=== PATIENT | male | born 1945 | race Caucasian/White ===

== ENCOUNTER 2019-04-15 16:24 | Inpatient (IN) | payer OTHER, SELFPAY ==
[2019-04-15] VITALS (10 sets, daily range): BP systolic 148–189; BP diastolic 74–103; PULSE 92–127; RESP 16–33; TEMP 36.9–40.8; O2SAT 94–96; BMI 25.0; BMI 25.1
--- NOTE | 2019-04-15 17:00 | RAD_ITS ---
STUDY: X-RAY CHEST REASON FOR EXAM: Male, 74 years old. FEVER 104 AT HOME, N/V/D, WEAKNESS TECHNIQUE: Single frontal view of the chest. COMPARISON: None. FINDINGS: Focal right medial basilar pneumonia cannot be excluded. Consider correlation with PA and lateral views of clinically indicated. Left basilar atelectasis. There is no demonstrated pleural abnormality. Normal size heart. Normal mediastinum and anastasiia. Normal visualized pulmonary arteries. Normal visualized aortic arch and descending thoracic aorta. Normal visualized thoracic spine. There is degenerative osteoarthritis of the bilateral shoulders. There is no demonstrated abnormality of the visualized soft tissue structures of the upper abdomen. RAD/Chest 1 View (Portable) IMPRESSION: Focal right medial basilar pneumonia cannot be excluded. Consider correlation with PA and lateral views of clinically indicated. Left basilar atelectasis. Electronically Signed: Solitario Rodriguez MD at 17:27 EST Tel , Service support ,
--- NOTE | 2019-04-15 17:12 | ED.VISSUMM ---
- ER Visit Summary Date of Service: 04/15/19 Chief Complaint: Fever History of Present Illness: The patient is a 74 M presenting with fever. Patient states this started on Monday. He has not felt well for the past 2 days. He had one episode of vomiting, one episode of diarrhea today. Denies blood in his stool or emesis. He complains of mild diffuse abdominal pain. He did not receive a flu shot this year. His last Tylenol was 7 AM. He went to urgent care and was sent to the ED for further evaluation. He denies chest pain or shortness of breath. He complains of myalgias. Denies headache. Physical Examination: Vitals are stable. Temperature 101.1. Heart rate 127. Alert no acute distress. HEENT exam is unremarkable. Neck is supple. No meningismus Lungs are clear and equal bilaterally. Heart is regular and tachycardic Abdomen is soft mild left lower quadrant and right lower quadrant tenderness with no guarding or rebound Extremities are unremarkable. Skin is warm and dry. No rash No focal neurologic deficit. Remainder of exam is unremarkable. Emergency Department Course and Treatment: Patient was given IV fluids, Tylenol. Chest xray shows focal right medial basilar pneumonia cannot be excluded. Consider correlation with PA and lateral views of clinically indicated. Left basilar atelectasis. Lateral view confirms alveolar disease in the posterior right lung base, likely related to pneumonia. CT abd pelvis shows right lower lobe pneumonia. No evidence of appendicitis, acute intestinal pathology, or acute obstructive uropathy. CBC unremarkable. Chemistries show sodium 127, glucose 121, BUN 19. Liver enzymes show ALT 70, AST 58, lipase 145. Urinalysis unremarkable. Lactic acid is normal. Blood cultures were sent. He was given Rocephin and Zithromax IV. Discussed with the hospitalist for admission. Disposition: Admission Impression: Community acquired pneumonia This note was generated with [employer] Capt[employer] dictation software. It may contain incorrect words, spelling, and punctuation that were not noted in review of the chart prior to signing ED Disposition - Plan for ED Patient: Referrals: Michael Hyman DO [Primary Care Provider] -
[2019-04-15] MEDS: 0.9% Normal Saline 1,000 ML 1000 ML IV (17:32)
[2019-04-15] MEDS: Acetaminophen 500 MG Tablet 1000 MG PO (17:32)
[2019-04-15 17:43] LABS: Absolute Lymphocyte Count 0.81 X10^3/uL (0.83-4.51); Basophil# 0.02 X10^3/uL; Basophil% 0.2 % (0-1); Differential Indicated SCAN CRITERIA MET; Hematocrit 41.2 % (40-54); Hemoglobin 14.4 g/dL (13.0-16.5); Lymphocyte # 0.81 X10^3/ul (4.0); Lymphocyte % 9.7 % (19-41); Mean Corpuscular Hgb 29.7 pg (27.0-32.0); Mean Corpuscular Volume 84.9 fL (80-94); Mean Platelet Vol. 9.2 fl (6.2-12.0); Monocyte# 0.48 X10^3/uL; Monocyte% 5.8 % (0-10); NRBC Flagged by Analyzer 0 % (0-5); Neutrophil # 6.98 X10^3/uL (2.7-7.7); Neutrophil % 83.7 % (47-70); POSITIVE MORPHOLOGY YES; Platelet Count 154 K/mm3 (150-450); RBC Distribution Width CV 12.3 % (11.6-14.6); RBC Distribution Width SD 37.6 fl (35.1-43.9); Red Blood Count 4.85 M/mm3 (4.6-6.2); White Blood Count 8.3 K/mm3 (4.4-11.0)
[2019-04-15 17:53] LABS: Red Blood Cells-Urine 0 SEEN /hpf (0-5); Squamous Epithelial Cells - UA 0 SEEN /hpf (0-5); White Blood Cells 0 SEEN /hpf (0-5)
[2019-04-15 17:56] LABS: ALB/GLOB Ratio 0.7 RATIO (0.9-2.4); AST(SGOT) 58 U/L (15-37); Alanine Aminotransfer ALT/SGPT 70 U/L (16-61); Albumin, Serum 3.3 g/dL (3.2-5.0); Alkaline Phosphatase 90 U/L (45-117); Anion Gap 7 (5-15); BUN 19 mg/dL (7-18); BUN/Creat Ratio 15.8 RATIO (10-20); Calcium,Total 9.3 mg/dL (8.5-10.1); Chloride 93 mmol/L (98-107); EST Glomerular Filtration Rate 63 mL/min (>60); Est Glom Filt Rate - Afr Amer 76 mL/min (>60); Estimated Creatinine Clearance 51.46 ml/min; Glucose 121 mg/dL (74-106); Lipase 145 U/L (73-393); Potassium 4.3 mmol/L (3.5-5.1); Protein, Total 8.3 g/dL (6.4-8.2); Sodium Level 127 mmol/L (136-145)
[2019-04-15 17:58] LABS: Differential Comment SCANNED
[2019-04-15 18:02] LABS: Color, Urine Yellow (Yellow); Glucose, Dipstick Normal (Normal); Ketone-Dipstick 15 mg/dl (Negative); Leukocyte Esterase-Dipstick Negative /ul (Negative); Nitrite-Dipstick Negative (Negative); Occult Blood-Urine 50 /ul (Negative); Protein-Dipstick 100 mg/dl (Negative); Specific Gravity, Urine 1.025 (1.002-1.030); Urine Bilirubin Dipstick Negative (Negative); Urine Clarity Cloudy (Clear); Urine Urobilinogen Normal (Normal)
[2019-04-15 18:13] LABS: Lactic Acid 0.9 mmol/L (0.4-1.9)
--- NOTE | 2019-04-15 18:37 | RAD_ITS ---
STUDY: X-RAY CHEST REASON FOR EXAM: Male, 74 years old. FEVER OF 104, COUGH -- LATERAL VIEW ONLY- PT HAD AP DONE EARLIER TODAY TECHNIQUE: Lateral view COMPARISON: None. FINDINGS: Lateral view confirms alveolar disease in the posterior right lung base, likely related to pneumonia. Degenerative thoracic spine changes. RAD/Chest 1 View IMPRESSION: Lateral view confirms alveolar disease in the posterior right lung base, likely related to pneumonia. Electronically Signed: Solitario Rodriguez MD at 19:12 EST Tel , Service support ,
--- NOTE | 2019-04-15 18:40 | CT_ITS ---
STUDY: CT ABDOMEN AND PELVIS WITH CONTRAST REASON FOR EXAM: Male, 74 years old. N/V/D/WEAKNESS. FEVER 104 @ HOME. RADIATION DOSAGE (If Supplied By Facility): CTDIvol = ( 11.02 ) mGy, DLP = ( 814.79 ) mGycm TECHNIQUE: Transaxial images were obtained from the dome of the diaphragm to the symphysis pubis with oral contrast. IV 100mL Isovue-300 was administered. Sagittal and coronal images were reconstructed. Individualized dose optimization techniques were used for this CT. COMPARISON: None. FINDINGS: Right lower lobe pneumonia. The visualized portions of the heart are within normal limits. Normal liver. Normal gallbladder and extrahepatic biliary system. Normal spleen. Normal pancreas. Normal bilateral adrenal glands. Normal right kidney. Normal left kidney. Normal visualized stomach. Normal small intestine. Normal colon. The appendix is visualized and appears normal. Normal abdominal aorta. Normal inferior vena cava. Normal retroperitoneum. Normal urinary bladder. Normal abdominal wall. There are diffuse degenerative changes of the visualized lumbar spine. CT/Abdomen/Pelvis WITH Contrast IMPRESSION: Right lower lobe pneumonia. No evidence of appendicitis, acute intestinal pathology, or acute obstructive uropathy. Electronically Signed: Solitario Rodriguez MD at 19:22 EST Tel , Service support ,
[2019-04-15 18:47] LABS: Bacteria RARE /hpf (None Seen)
[2019-04-15 18:48] LABS: Mucous, Urine RARE /hpf (<or=2+)
--- NOTE | 2019-04-15 19:46 | HP.PCM_ITS ---
Problem List (1) Sepsis Status: Acute (2) Community acquired pneumonia Status: Acute History of Present Illness Date of Admission: 04/15/19 Chief Complaint: fever The patient is a 74 year old M, previously healthy, presenting because of fever. At home his temperature was about 104 Fahrenheit. Associated with his symptoms is nausea; vomiting and diarrhea. Originally the stool was loose but now his stool is getting more formed. Further, he had chills and rigors. He denies any shortness of breath; coughing or sore throat. At the emergency department patient was found to have a T-max of 105.5F. He had tachycardia and tachypnea. CT and chest x-ray showed findings consistent with right lower lobe pneumonia. Past Medical History Medical History: Medical History (Last Updated 04/15/19 @ 20:13 by Alireza Khan MD) No previous significant medical history Allergies No Known Allergies Allergy (Verified 04/15/19 16:27) Home Medications: Ambulatory Orders Medication Instructions Recorded NK 04/15/19 Surgical History: - - Left leg surgery with hardware in place Lives: With Family Smoking Status: Never smoker Alcohol: None - *Family History Maternal History Items: Heart Disease - His mother from a heart attack. Paternal History Items: - - He denied any paternal medical history. Review of Systems Constitutional: Reports: Chills, Fever. Denies: Weight Change HEENT: Denies: Head Aches, Sinus Congestion, Sinus Drainage Cardiovascular: Denies: Chest Pain, Palpitations Respiratory: Denies: Cough, Shortness of breath at rest, Sputum production Gastrointestinal: Reports: Diarrhea, Nausea, Vomiting. Denies: Abdominal Pain Genitourinary: Denies: Dysuria Musculoskeletal: Denies: Joint Pain, Joint Tenderness Skin: Denies: Rash, Wounds Neurological: Denies: Numbness, Tingling, Focal weakness Psychiatric: Denies: Anxiety, Depression, Homicidal Ideations, Suicidal Ideations Hematologic/ Lymphatic: Denies: Easy Bruising, Easy Bleeding VTE Information - Inpt Only VTE Present on Admission: No VTE Mechan Device Prophylaxis: None VTE Pharm Prophylaxis ordered?: Yes Patient Problems: Active and Suspected Problems (Last Updated 04/15/19 @ 20:13 by Alireza Khan MD) Sepsis (Acute) Community acquired pneumonia (Acute) - Physical Exam Vitals/I&O's: Vital Signs Temp Pulse Resp BP Pulse Ox 99.6 F H 96 21 H 148/81 H 94 04/15/19 18:32 04/15/19 18:32 04/15/19 18:32 04/15/19 18:32 04/15/19 18:32 Oxygen Delivery Method Room Air Weight: 74.843 kg Body Mass Index (BMI) 25.0 Intake and Output for Last 24 Hours 04/13/19 04/14/19 04/15/19 23:59 23:59 23:59 Intake Total 1000 / 1000 Balance 1000 / 1000 General: Alert, Oriented x3, Cooperative HEENT: Atraumatic, PERRLA, EOMI, Normocephalic Neck: Supple, No JVD, Negative Carotid Bruits Lungs: Clear to auscultation, Normal air movement, Tachypneic Cardiovascular: No murmurs, Tachycardic Abdomen: Bowel Sounds Present, Soft, Non Tender Extremities: No edema, Capillary Refill Less than 3 Seconds Skin: No rashes, No breakdown Musculoskeletal: No Tenderness to Palpation of Joints or Extremities Neurological: Cranial nerves II-XII grossly intact Psych/Mental Status: Normal Affect, Appropriate Microbiology Past 72 Hours 04/15/19 18:15 Mucosa - Nose Influenza Types A,B Direct FA (TERRENCE) - Final Laboratory Results 04/15/19 17:24: WBC 8.3, RBC 4.85, Hgb 14.4, Hct 41.2, MCV 84.9, MCH 29.7, MCHC 35.0, RDW Std Deviation 37.6, RDW Coeff of [place] 12.3, Plt Count 154, MPV 9.2, Immature Gran % (Auto) 0.600, Neut % (Auto) 83.7 H, Lymph % (Auto) 9.7 L, [place] % (Auto) 5.8, Eos % (Auto) 0.0, Baso % (Auto) 0.2, Absolute Neuts (auto) 7.0, Absolute Lymphs (auto) 0.81 L, Nucleated RBC % 0, Differential Comment SCANNED 04/15/19 17:24: Sodium 127 L, Potassium 4.3, Chloride 93 L, Carbon Dioxide 27.0, Anion Gap 7, BUN 19 H, Creatinine 1.20, Estim Creat Clear Calc 51.46, Est GFR (MDRD) Af Amer 76, Est GFR (MDRD) Non-Af 63, BUN/Creatinine Ratio 15.8, Glucose 121 H, Calcium 9.3, Total Bilirubin 0.90, AST 58 H, ALT 70 H, Alkaline Phosphatase 90, Total Protein 8.3 H, Albumin 3.3, Globulin 5.0 H, Albumin/Globulin Ratio 0.7 L, Lipase 145 04/15/19 17:24: Lactic Acid 0.9 04/15/19 17:45: Urine Color Yellow, Urine Clarity Cloudy, Urine pH 6.0, Ur Specific [place] 1.025, Urine Protein 100 H, Urine Glucose (UA) Normal, Urine Ketones 15 H, Urine Occult Blood 50 H, Urine Nitrite Negative, Urine Bilirubin Negative, Urine Urobilinogen Normal, Ur Leukocyte Esterase Negative, Urine RBC 0 SEEN, Urine WBC 0 SEEN, Ur Squamous Epith Cells 0 SEEN, Urine Bacteria RARE, Urine Mucus RARE Assessment/Plan All Active Problems (Last Updated 04/15/19 @ 20:13 by Alireza Khan MD) Sepsis (Acute) Community acquired pneumonia (Acute) The patient is a 74 year old M, previously healthy, presenting because of fever; nausea; vomiting and diarrhea and found to have tachycardia; tachypnea; and high-grade fever; and with radiographic evidence of right lower lobe pneumonia consistent with sepsis secondary to community-acquired pneumonia. Sepsis second community-acquired pneumonia Lactic acid: 0.9 RR ~maximum of 33 at the emergency department. Tachycardia: Maximum of 127 at the emergency department. Place on MedSurg with telemetry Discussed emergency department doctor to start blood cultures x2 and start patient on antibiotics. Ceftriaxone and azithromycin ordered emergency department. Ceftriaxone and azithromycin continued Chest x-ray and abdominal and pelvis CT: Remarkable for right lower lobe pneumonia. Patient is not coughing as such sputum culture not ordered. IV hydration: Received normal saline 1 L bolus at the emergency department. Gentle IV hydration ordered. Legionella antigen screen and Strep antigen ordered Tylenol PRN for fever; Zofran as needed for nausea or vomiting Trend CBC and BMP. Hyponatremia Sodium on presentation was 127 likely due to pneumonia. Treatment of pneumonia as above. Trend BMP. Proteinuria Likely secondary to febrile illness. Also noted to have positive urine occult blood. On discharge recommend patient to have follow-up urinalysis. Elevated liver enzymes Noted to have elevated AST and ALT. Trend liver enzymes. Will get PT/INR. Get acute hepatitis panel. Review of community EMR did not show previous lab results DVT prophylaxis Subcutaneous Lovenox Code Visit Inpatient E&M: 68153 Init Hosp L3
[2019-04-15] MEDS: Ceftriaxone 1 GM/50 ML BAG IV (20:21)
[2019-04-15] MEDS: 0.9% Normal Saline 1,000 ML 75 ML IV (21:06)
[2019-04-16] VITALS (17 sets, daily range): BP systolic 114–145; BP diastolic 54–77; PULSE 87–141; RESP 16–28; TEMP 36.6–38.8; O2SAT 92–96
[2019-04-16] MEDS: Ondansetron 4 MG/2 ML Vial IV (01:57)
[2019-04-16 05:50] LABS: Absolute Lymphocyte Count 1.07 X10^3/uL (0.83-4.51); Absolute Neutrophil Count 5.4 X10^3/uL (2.0-7.7); Basophil# 0.02 X10^3/uL; Basophil% 0.3 % (0-1); Hematocrit 34.4 % (40-54); Lymphocyte # 1.07 X10^3/ul (4.0); Lymphocyte % 15.2 % (19-41); Mean Corp Hgb Conc 34.9 g/dL (32-36); Mean Corpuscular Hgb 29.2 pg (27.0-32.0); Mean Corpuscular Volume 83.7 fL (80-94); Mean Platelet Vol. 8.7 fl (6.2-12.0); Monocyte# 0.53 X10^3/uL; Monocyte% 7.5 % (0-10); NRBC Flagged by Analyzer 0 % (0-5); Neutrophil # 5.38 X10^3/uL (2.7-7.7); Neutrophil % 76.6 % (47-70); Platelet Count 158 K/mm3 (150-450); RBC Distribution Width CV 12.6 % (11.6-14.6); RBC Distribution Width SD 38.2 fl (35.1-43.9); Red Blood Count 4.11 M/mm3 (4.6-6.2)
[2019-04-16 05:56] LABS: International Normalized Ratio 1.1; Prothrombin Time (Protime)PT. 14.4 SECONDS (11.7-14.9)
[2019-04-16 06:23] LABS: AST(SGOT) 50 U/L (15-37); Alanine Aminotransfer ALT/SGPT 62 U/L (16-61); Albumin, Serum 2.6 g/dL (3.2-5.0); Alkaline Phosphatase 82 U/L (45-117); Anion Gap 6 (5-15); BUN 16 mg/dL (7-18); BUN/Creat Ratio 15.2 RATIO (10-20); Bilirubin, Direct 0.19 mg/dL (0.00-0.30); Calcium,Total 8.1 mg/dL (8.5-10.1); Chloride 98 mmol/L (98-107); Creatinine, Serum 1.05 mg/dL (0.70-1.30); EST Glomerular Filtration Rate 73 mL/min (>60); Est Glom Filt Rate - Afr Amer 89 mL/min (>60); Estimated Creatinine Clearance 58.81 ml/min; Globulin 4.3 g/dL (2.2-4.2); Glucose 109 mg/dL (74-106); Potassium 3.6 mmol/L (3.5-5.1); Protein, Total 6.9 g/dL (6.4-8.2); Sodium Level 130 mmol/L (136-145)
--- NOTE | 2019-04-16 09:17 | EKG12_ITS ---
Test Reason : TACHYARDIA Blood Pressure : / mmHG Vent. Rate : 115 BPM Atrial Rate : 131 BPM P-R Int : 000 ms QRS Dur : 084 ms QT Int : 298 ms P-R-T Axes : 000 007 -18 degrees QTc Int : 412 ms Atrial fibrillation Abnormal ECG No previous ECGs available Confirmed by TERRANCE RUIZ ([id number]), editor greeting card PATRIC GARCÍA ([id number]) on 04/19/2019 10:00:52 AM Referred By: LEX Confirmed By:TERRANCE RUIZ
[2019-04-16] MEDS: Acetaminophen 325 MG Tablet 650 MG PO (09:18)
[2019-04-16] MEDS: Ceftriaxone 1 GM/50 ML BAG IV ×2 (09:20→21:09)
[2019-04-16] MEDS: Enoxaparin 40 MG/0.4 ML Syringe SC (09:22)
--- NOTE | 2019-04-16 12:37 | CASEMGMT ---
RN CM Assessment Introduced role of RN CM to patient and patient Dtr Ada at bedside, patient agreeable to RNCM assessment at this time.? Patient is alert, oriented and able?to participate in RN CM Assessment. ?Care providers, pharmacy, and demographics verified. Presentation: Fever, N/V/D Admit Dx: Sepsis s/t PNA Re-Admit: No Barriers/Issues: Patient states does not have electricity at home if Home O2 needed at time of DC, Per Dtr ADA they have access to a generator if needed. PCP: Michael Hyman Specialists: None Preferred Pharmacy: [facility] Insurance: [employer] Benefit:?None ?LNOK: Son Germán Goldman LW/HPOA: None, patient declines completion on this admission but agreeable to receiving information- provided advanced directive information with SW Rack card, made aware can return as an outpatient to complete with SW Dept if chooses at a later time. Living Arrangements:? Lives with his 2 Dtrs in a 2SH, Bedroom on 2nd fl. 3 steps to enter home through the back, 7-8 steps to enter home at another entrance ADL?s: Independent with ambulation and ADLs Transportation: Hired drivers DME: BP machine/pulse ox HHC: None SNF: None Goal: Home and does not think will have any needs. Denies any issues, concerns, needs, or questions with DC planning at this time. Aware CM remains available for any emerging needs. DC PLAN: Home with no anticipated needs identified at this time. RNCM to f/u on O2 status prior to DC for potential Home O2 need. LANCE Giraldo
--- NOTE | 2019-04-16 12:48 | PCM.PN.HOSP ---
Patient Problems: Active and Suspected Problems (Last Updated 04/15/19 @ 20:13 by Alireza Khan MD) Sepsis (Acute) Community acquired pneumonia (Acute) Reason for Visit: pneumonia Subjective: Still with fever. Overall feeling better. Vitals/I&O's: Vital Signs Temp Pulse Resp BP Pulse Ox 37.2 C 94 20 H 119/73 93 04/16/19 09:45 04/16/19 10:46 04/16/19 09:45 04/16/19 09:45 04/16/19 09:45 Oxygen Delivery Method Room Air Weight: 74.5 kg Body Mass Index (BMI) 25.0 Intake and Output for Last 24 Hours 04/14/19 04/15/19 04/16/19 23:59 23:59 23:59 Intake Total 1306.25 / 1306.25 1591.25 / 1591.25 Output Total 450 / 450 425 / 425 Balance 856.25 / 856.25 1166.25 / 1166.25 General: Alert, No apparent distress HEENT: Atraumatic, Normocephalic Oral: Moist Mucosa, No Gingival or Mucosal Lesions/ Ulcerations Neck: No Nodes, Trachea Midline Lungs: Clear to auscultation, Normal air movement, No rhonchi, No wheeze, - - diminished in bases Cardiovascular: Regular rate, Regular Rhythm, Normal S1, Normal S2, No murmurs Abdomen: Bowel Sounds Present, Soft, Non Tender, Non-Distended, No Hepato-splenomegaly Extremities: No edema, No Calf Tenderness Psych/Mental Status: Normal Affect, Appropriate Microbiology Past 72 Hours 04/15/19 17:45 Urine, Clean Catch Legionella Antigen - Final 04/15/19 17:45 Urine, Clean Catch Streptococcus pneumoniae Antigen (M - Final 04/15/19 18:15 Mucosa - Nose Influenza Types A,B Direct FA (TERRENCE) - Final Laboratory Results 04/15/19 17:24: WBC 8.3, RBC 4.85, Hgb 14.4, Hct 41.2, MCV 84.9, MCH 29.7, MCHC 35.0, RDW Std Deviation 37.6, RDW Coeff of [place] 12.3, Plt Count 154, MPV 9.2, Immature Gran % (Auto) 0.600, Neut % (Auto) 83.7 H, Lymph % (Auto) 9.7 L, [place] % (Auto) 5.8, Eos % (Auto) 0.0, Baso % (Auto) 0.2, Absolute Neuts (auto) 7.0, Absolute Lymphs (auto) 0.81 L, Nucleated RBC % 0, Differential Comment SCANNED 04/15/19 17:24: Sodium 127 L, Potassium 4.3, Chloride 93 L, Carbon Dioxide 27.0, Anion Gap 7, BUN 19 H, Creatinine 1.20, Estim Creat Clear Calc 51.46, Est GFR (MDRD) Af Amer 76, Est GFR (MDRD) Non-Af 63, BUN/Creatinine Ratio 15.8, Glucose 121 H, Calcium 9.3, Total Bilirubin 0.90, AST 58 H, ALT 70 H, Alkaline Phosphatase 90, Total Protein 8.3 H, Albumin 3.3, Globulin 5.0 H, Albumin/Globulin Ratio 0.7 L, Lipase 145 04/15/19 17:24: Lactic Acid 0.9 04/15/19 17:45: Urine Color Yellow, Urine Clarity Cloudy, Urine pH 6.0, Ur Specific [place] 1.025, Urine Protein 100 H, Urine Glucose (UA) Normal, Urine Ketones 15 H, Urine Occult Blood 50 H, Urine Nitrite Negative, Urine Bilirubin Negative, Urine Urobilinogen Normal, Ur Leukocyte Esterase Negative, Urine RBC 0 SEEN, Urine WBC 0 SEEN, Ur Squamous Epith Cells 0 SEEN, Urine Bacteria RARE, Urine Mucus RARE 04/16/19 05:35: WBC 7.0, RBC 4.11 L, Hgb 12.0 L, Hct 34.4 L, MCV 83.7, MCH 29.2, MCHC 34.9, RDW Std Deviation 38.2, RDW Coeff of [place] 12.6, Plt Count 158, MPV 8.7, Immature Gran % (Auto) 0.400, Neut % (Auto) 76.6 H, Lymph % (Auto) 15.2 L, [place] % (Auto) 7.5, Eos % (Auto) 0.0, Baso % (Auto) 0.3, Absolute Neuts (auto) 5.4, Absolute Lymphs (auto) 1.07, Nucleated RBC % 0 04/16/19 05:35: PT 14.4, INR 1.1 04/16/19 05:35: Sodium 130 L, Potassium 3.6, Chloride 98, Carbon Dioxide 26.0, Anion Gap 6, BUN 16, Creatinine 1.05, Estim Creat Clear Calc 58.81, Est GFR (MDRD) Af Amer 89, Est GFR (MDRD) Non-Af 73, BUN/Creatinine Ratio 15.2, Glucose 109 H, Calcium 8.1 L, Total Bilirubin 0.60, Direct Bilirubin 0.19, AST 50 H, ALT 62 H, Alkaline Phosphatase 82, Total Protein 6.9, Albumin 2.6 L, Globulin 4.3 H Current Medications Acetaminophen (Tylenol) 650 mg PO Q6H PRN PRN PRN Reason: Pain Score 1-10/Temp > 100.7 F Last Admin: 04/16/19 09:18 Dose: 650 mg Documented by: Enoxaparin Sodium (Lovenox) 40 mg SC DAILY [facility] Last Admin: 04/16/19 09:22 Dose: 40 mg Documented by: Glucagon () 1 mg IM .X1 PRN PRN Reason: Hypoglycemia Ceftriaxone Sodium (Rocephin) 1 gm in 50 mls @ 100 mls/hr IV Q12 [facility] Last Infusion: 04/16/19 09:50 Dose: Infused Documented by: Azithromycin 500 mg/ Dextrose 255 mls @ 250 mls/hr IV Q24 [facility] Last Infusion: 04/16/19 11:29 Dose: Infused Documented by: Dextrose (Dextrose 10%-Water) 250 mls @ 999 mls/hr IV .Q16M PRN; Protocol PRN Reason: HYPOGLYCEMIA Ondansetron HCl (Zofran) 4 mg IV Q8H PRN PRN PRN Reason: NAUSEA/VOMITING Last Admin: 04/16/19 01:57 Dose: 4 mg Documented by: Sodium Chloride () 10 - 40 ml IV UD PRN PRN Reason: SALINE FLUSH STROKE Vital Signs/Narrative: Vital Signs Temp Pulse Resp BP Pulse Ox 04/16/19 10:46 94 04/16/19 09:45 37.2 C 107 H 20 H 119/73 93 04/16/19 09:05 38.8 C H 124 H 28 H 127/74 H 93 04/16/19 08:56 141 H Medical Necessity - Tobacco Use Smoking Status: Never smoker Tobacco Use: Non-smoker Assessment/Plan All Active Problems (Last Updated 04/15/19 @ 20:13 by Alireza Khan MD) Sepsis (Acute) Community acquired pneumonia (Acute) 1. sepsis 2/2 pneumonia ongoing but improved still with fevers, but less severe encouraged patient to take acetaminophen PRN for fevers follow up blood cultures 2. suspected pneumococcal pneumonia on azithromycin and CTX Strep ag, legionella ag, influenza negative 3. VTE proph: LMWH Code Visit Inpatient E&M: 54938 Subs Hosp L2
[2019-04-17] VITALS (10 sets, daily range): BP systolic 124–144; BP diastolic 68–87; PULSE 74–141; RESP 16–20; TEMP 36.6–37.2; O2SAT 94–96
--- NOTE | 2019-04-17 09:39 | DCINST_ITS ---
- Discharge Diagnoses Current Active Problems: Current Active and Chronic Problems (Last Updated 04/15/19 @ 20:13 by Alireza Khan MD) Sepsis (Acute) Community acquired pneumonia (Acute) You will use the following diet at home:: No restrictions Discharge Activity: Return to Normal Activity - slowly ease back into your normal routine overal several days. Preferably, taking a day or 2 off. Call your doctor if you observe: Fever of 101 or Higher, Shortness of breath Allergies/Adverse Reactions: Allergies No Known Allergies Allergy (Verified 04/15/19 16:27) Medications to take at Discharge Acetaminophen [Tylenol Tablet] 650 mg PO Q6H PRN PRN tablet 04/17/19 Amox/Clavulanate Tablet [Augmentin Tablet] 875 mg PO Q12H #12 tab 04/17/19 Loperamide [Imodium] 2 mg PO Q4H PRN PRN #1 capsule 04/17/19 The following prescriptions were given: Amox/Clavulanate Tablet [Augmentin Tablet] 875 mg PO Q12H #12 tab Transmission Status: Pending to [facility] Loperamide [Imodium] 2 mg PO Q4H PRN PRN #1 capsule PRN Reason: Diarrhea Primary Care Physician: Michael Hyman DO [Primary Care Provider] - Within 1 Week Test Results: Test results from this visit will be discussed in further detail at your follow- up appointment, if applicable. Proposed Discharge Date: 04/17/19
--- NOTE | 2019-04-17 09:41 | DS.PCM_ITS ---
Discharge Date and Diagnosis - Problem List Patient Problems: Active and Suspected Problems (Last Updated 04/15/19 @ 20:13 by Alireza Khan MD) Sepsis (Acute) Community acquired pneumonia (Acute) Date of Admission: 04/15/19 Date of Discharge: 04/17/19 - Primary Discharge Diagnosis Active and Suspected Problems (Last Updated 04/15/19 @ 20:13 by Alireza Khan MD) Sepsis (Acute) Community acquired pneumonia (Acute) Hyponatremia, acute Hospital Course and Treatment Imaging Results: Clinical Impression(s) from Imaging Studies Chest X-Ray 04/15/19 17:00 IMPRESSION: Focal right medial basilar pneumonia cannot be excluded. Consider correlation with PA and lateral views of clinically indicated. Left basilar atelectasis. Electronically Signed: Solitario Rodriguez MD at 17:27 EST Tel , Service support , Chest X-Ray 04/15/19 18:37 IMPRESSION: Lateral view confirms alveolar disease in the posterior right lung base, likely related to pneumonia. Electronically Signed: Solitario Rodriguez MD at 19:12 EST Tel , Service support , Abdomen/Pelvis CT 04/15/19 18:40 IMPRESSION: Right lower lobe pneumonia. No evidence of appendicitis, acute intestinal pathology, or acute obstructive uropathy. Electronically Signed: Solitario Rodriguez MD at 19:22 EST Tel , Service support , Operations: None Procedures: None Summary of Care Provided: The patient is a 74 year old M presents with fevers of up to 105.[address]. Patient had a CT of the abdomen pelvis that showed some bilateral infiltrate. Patient was started on azithromycin and ceftriaxone. Patient continued to have fevers while he was in the hospital but less and reaching by 102 Fahrenheit on the fourth. Today, the patient is feeling much better, no further fevers and feels well. Patient will be discharged home with Augmentin that to complete a 7-day course of antibiotics. Patient did have some mild hyponatremia about 127 when he presented. On the fourth it was up to 130. Being that is improving patient is asymptomatic, no additional work-up at this time. [] Patient Problems: Active and Suspected Problems (Last Updated 04/15/19 @ 20:13 by Alireza Khan MD) Sepsis (Acute) Community acquired pneumonia (Acute) - Physical Exam Vitals/I&O's: Vital Signs Temp Pulse Resp BP Pulse Ox 37.1 C 86 20 H 140/75 H 94 04/17/19 08:22 04/17/19 08:53 04/17/19 08:53 04/17/19 08:22 04/17/19 08:53 Oxygen Delivery Method Room Air Weight: 74.5 kg Body Mass Index (BMI) 25.0 Intake and Output for Last 24 Hours 04/15/19 04/16/19 04/17/19 23:59 23:59 23:59 Intake Total 1306.25 / 1306.25 2203.75 / 2903.75 1100 / 1100 Output Total 450 / 450 425 / 425 Balance 856.25 / 856.25 1778.75 / 2478.75 1100 / 1100 General: Alert, No apparent distress HEENT: Atraumatic, Normocephalic Oral: Moist Mucosa, No Gingival or Mucosal Lesions/ Ulcerations Neck: No Nodes, Trachea Midline Lungs: Normal air movement, - - Bibasilar crackles Cardiovascular: Regular rate, Regular Rhythm, Normal S1, Normal S2, No murmurs Abdomen: Bowel Sounds Present, Soft, Non Tender, Non-Distended, No Hepato- splenomegaly Microbiology Past 72 Hours 04/16/19 20:10 Stool C. difficile DNA Amplification - Final 04/15/19 17:45 Urine, Clean Catch Legionella Antigen - Final 04/15/19 17:45 Urine, Clean Catch Streptococcus pneumoniae Antigen (M - Final 04/15/19 18:15 Mucosa - Nose Influenza Types A,B Direct FA (TERRENCE) - Final Current Medications Acetaminophen (Tylenol) 650 mg PO Q6H PRN PRN PRN Reason: Pain Score 1-10/Temp > 100.7 F Last Admin: 04/16/19 09:18 Dose: 650 mg Documented by: Enoxaparin Sodium (Lovenox) 40 mg SC DAILY GAMAL Last Admin: 04/16/19 09:22 Dose: 40 mg Documented by: Glucagon () 1 mg IM .X1 PRN PRN Reason: Hypoglycemia Ceftriaxone Sodium (Rocephin) 1 gm in 50 mls @ 100 mls/hr IV Q12 [facility] Last Infusion: 04/16/19 21:40 Dose: Infused Documented by: Azithromycin 500 mg/ Dextrose 255 mls @ 250 mls/hr IV Q24 [facility] Last Infusion: 04/16/19 11:29 Dose: Infused Documented by: Dextrose (Dextrose 10%-Water) 250 mls @ 999 mls/hr IV .Q16M PRN; Protocol PRN Reason: HYPOGLYCEMIA Ondansetron HCl (Zofran) 4 mg IV Q8H PRN PRN PRN Reason: NAUSEA/VOMITING Last Admin: 04/16/19 01:57 Dose: 4 mg Documented by: Sodium Chloride () 10 - 40 ml IV UD PRN PRN Reason: SALINE FLUSH Discharge Diet: No Restrictions Discharge Activity: Return to Normal Activity - slowly ease back into your normal routine overal several days. Preferably, taking a day or 2 off. Call your doctor if you observe: Fever of 101 or Higher, Shortness of breath Home Medications: Medications to take at Discharge Acetaminophen [Tylenol Tablet] 650 mg PO Q6H PRN PRN tablet 04/17/19 Amox/Clavulanate Tablet [Augmentin Tablet] 875 mg PO Q12H #12 tab 04/17/19 Loperamide [Imodium] 2 mg PO Q4H PRN PRN #1 capsule 04/17/19 Following Prescrptions Were Given to Patient: Amox/Clavulanate Tablet [Augmentin Tablet] 875 mg PO Q12H #12 tab Transmission Status: Pending to [facility] Loperamide [Imodium] 2 mg PO Q4H PRN PRN #1 capsule PRN Reason: Diarrhea Primary Care Physician: Michael Hyman DO [Primary Care Provider] - Within 1 Week Disposition: Home Minutes spent on discharge:: 32 Patient Condition:: Good Medical Necessity - Tobacco Use Smoking Status: Never smoker Tobacco Use: Non-smoker Meaningful Use Info Meaningful Use Diagnoses (Choose all that apply): None applicable Code Visit Inpatient E&M: 34748 Disch Hosp
[2019-04-17] MEDS: Ceftriaxone 1 GM/50 ML BAG IV (10:17)
[2019-04-17] MEDS: Enoxaparin 40 MG/0.4 ML Syringe SC (10:19)
[2019-04-17] MEDS: Azithromycin 250 MG Tablet 1000 MG PO (10:57)
--- NOTE | 2019-04-17 12:29 | NURSING ---
Late entry: Student nurse documentation reviewed.
== END 2019-04-17 12:10 | disposition home or self-care (01) | DRG 871 ==
LOC: ED 17:12 → MS3 20:54
PROVIDERS: Admitting Provider Hospitalist; Emergency Provider Emergency Medicine; PCP Family Medicine
DX: A41.9 Sepsis, unspecified organism (principal); J18.9 Pneumonia, unspecified organism; E87.1 Hypo-osmolality and hyponatremia; A04.5 Campylobacter enteritis
CPT/HCPCS: 36415; 71045; 74177; 80048; 80053; 80076; 81001; 83605; 83690; 85025; 85610; 87040; 87449; 87493; 87506; 87804; 93005; 99283; J7030; J7040; Q9967; A4216; J2405

== ENCOUNTER 2020-09-03 11:49 | Emergency (ER) | payer OTHER, SELFPAY ==
[2019-04-15 20:39] VITALS: BMI 25.0
[2020-09-03 11:50] VITALS: BP 161/75; PULSE 72; RESP 16; TEMP 36.3; O2SAT 98; BMI 25.0
--- NOTE | 2020-09-03 12:00 | EKG12_ITS ---
Test Reason : HYPERTENSION Blood Pressure : / mmHG Vent. Rate : 065 BPM Atrial Rate : 065 BPM P-R Int : 158 ms QRS Dur : 086 ms QT Int : 404 ms P-R-T Axes : 029 000 019 degrees QTc Int : 420 ms Normal sinus rhythm Normal ECG Confirmed by ANIKA HARRIS, SHAUN ([id number]), editorial project manager ALEXANDER MORALES ([id number]) on 09/04/2020 1:00:03 PM Referred By: CHIQUIS Confirmed By:SHAUN DONALDSON MD
--- NOTE | 2020-09-03 12:05 | EDS_ITS ---
HPI History of Present Illness Chief Complaint: Hypertension Informant: patient Onset/Context/Timing Onset: Today Narrative Narrative: The patient is a 75-year-old male with history of hypertension who was just recently started on antihypertensives. The patient presents because his blood pressure was elevated this morning. He states he did feel mildly lightheaded but that is since resolved. He states he normally did not monitor his blood pressure. He did see his primary care in the office on Monday and was started on telmisartan 40 mg. He takes it in the morning. He denies chest pain. He denies shortness of breath. He denies vision change, nausea, or other systemic symptoms. He was just concerned that his blood pressure was still elevated despite medical treatment. [facility] Medical History Hypertension No previous significant medical history Home Medications aspirin 81 mg PO DAILY 09/03/20 [History Last Taken Unknown] telmisartan 40 mg PO DAILY 09/03/20 [History Last Taken Unknown] Allergy/AdvReac Type Severity Reaction Status Date / Time No Known Allergies Allergy Verified 09/03/20 11:53 Social History Smoking Status: Never smoker ROS ROS ED Constitutional Constitutional ED: Denies chills or fever(s) Eyes Eyes: Denies blurry vision or change in vision ENT ENT ED: Denies ear pain or sore throat Cardiovascular Cardiovascular: Denies chest pain or palpitations Respiratory/Chest Respiratory/Chest: Denies cough, dyspnea or dyspnea on exertion Gastrointestinal Gastrointestinal: Denies abdominal pain, nausea or vomiting Genitourinary Genitourinary ED: Denies dysuria or urinary frequency Musculoskeletal Musculoskeletal: Denies arthralgias or myalgias Integumentary Denies rash Neurologic Neurologic: Denies headache(s) or paresthesias Psychiatric Psychiatric: Denies anxiety or depression Endocrine Endocrinology: Denies polydipsia or polyuria Allergic/Immunologic Allergic/Immunologic ED: Denies urticaria EXAM Physical Exam Const Vital Signs: 09/03/20 11:50 09/03/20 11:56 Temperature 97.3 F L Temperature Source Temporal Pulse Rate 72 Respiratory Rate 16 Respiratory Effort Normal Non-Labored Respiratory Pattern Normal Blood Pressure 161/75 H Blood Pressure Mean 103 Pulse Ox 98 Oxygen Delivery Method Room Air Positive well nourished and well developed General Appearance ED: well developed HEENT Reports normocephalic, head/scalp atraumatic and moist mucous membranes Eyes PERRL and EOMs intact bilaterally Neck no lymphadenopathy and supple General: Negative for tenderness Chest Wall inspection of chest normal Resp normal respiratory effort and clear to auscultation bilaterally Cardio regular rate, regular rhythm and no murmurs GI normal to inspection, nondistended, normoactive bowel sounds Palpation: Negative for tender, guarding or rebound tenderness present Back/Spine no CVA tenderness Cervical Spine: Negative for cervical spine tenderness Thoracic Spine / Upper Back: Negative for thoracic spinal tenderness Extremity normal to inspection General Extremety ED: Negative for tenderness Neuro oriented x3 and CN's II-XII intact bilaterally Neuro Narrative: No focal deficits appreciated. Sensorium / Orientation: alert Psych mental status grossly normal Skin no rashes or lesions noted, no wounds and skin turgor normal MDM MDM MDM Narrative Medical decision making narrative: The patient presents with hypertension. He is asymptomatic. He was just concerned because his blood pressure was still elevated after taking medication for 3 days. I did obtain metabolic work-up. EKG shows sinus rhythm. There is no evidence of acute ischemia. Normal axis and intervals. It was unchanged from prior. Labs are unremarkable. Patient was observed. He is resting comfortably. I did have a long conversation with him about the duration of medications and that sometimes it takes time to have good control. He has no other symptoms. I do feel that he safe outpatient follow-up. Impression 1. Hypertension Lab Data Attestation: I reviewed the patient's lab results. Labs: Laboratory Results - last 24 hr 09/03/20 09/03/20 12:21 12:21 WBC 5.1 RBC 4.59 L Hgb 13.6 Hct 40.0 MCV 87.1 MCH 29.6 MCHC 34.0 RDW Std Deviation 39.8 RDW Coeff of [place] 12.5 Plt Count 157 MPV 8.2 Immature Gran % (Auto) 0.200 Neut % (Auto) 50.4 Lymph % (Auto) 37.7 [place] % (Auto) 7.5 Eos % (Auto) 3.6 Baso % (Auto) 0.6 Absolute Neuts (auto) 2.6 Absolute Lymphs (auto) 1.91 Nucleated RBC % 0 Sodium 138 Potassium 4.0 Chloride 106 Carbon Dioxide 26.0 Anion Gap 6 BUN 24 H Creatinine 0.88 Estim Creat Clear Calc 69.09 Est GFR (MDRD) Af Amer 108 Est GFR (MDRD) Non-Af 89 BUN/Creatinine Ratio 27.1 H Glucose 88 Calcium 9.0 Discharge Plan Triage Chief Complaint: Hypertension ED Provider: Papi Ramon Dx/Rx/DC Orders Instructions: ED Hypertension, Established Prescriptions: No Action telmisartan 40 mg Tablet 40 mg PO DAILY RF: 0 aspirin 81 mg Tablet 81 mg PO DAILY RF: 0 Primary Care Provider: Michael Hyman Referrals: Michael Hyman DO [Primary Care Provider] -
[2020-09-03 12:36] LABS: Absolute Lymphocyte Count 1.91 X10^3/uL (0.83-4.51); Absolute Neutrophil Count 2.6 X10^3/uL (2.0-7.7); Basophil# 0.03 X10^3/uL; Basophil% 0.6 % (0-1); Eosinophil# 0.18 X10^3/uL; Eosinophils% 3.6 % (0-5); Hemoglobin 13.6 g/dL (13.0-16.5); Lymphocyte # 1.91 X10^3/ul (0.83-4.51); Lymphocyte % 37.7 % (19-41); Mean Corpuscular Hgb 29.6 pg (27.0-32.0); Mean Corpuscular Volume 87.1 fL (80-94); Mean Platelet Vol. 8.2 fl (6.2-12.0); Monocyte# 0.38 X10^3/uL; Monocyte% 7.5 % (0-10); NRBC Flagged by Analyzer 0 % (0-5); Neutrophil # 2.56 X10^3/uL (2.7-7.7); Neutrophil % 50.4 % (47-70); Platelet Count 157 K/mm3 (150-450); RBC Distribution Width CV 12.5 % (11.6-14.6); RBC Distribution Width SD 39.8 fl (35.1-43.9); Red Blood Count 4.59 M/mm3 (4.6-6.2); White Blood Count 5.1 K/mm3 (4.4-11.0)
[2020-09-03 12:54] LABS: Anion Gap 6 (5-15); BUN 24 mg/dL (7-18); BUN/Creat Ratio 27.1 RATIO (10-20); Chloride 106 mmol/L (98-107); Creatinine, Serum 0.88 mg/dL (0.70-1.30); EST Glomerular Filtration Rate 89 mL/min (>60); Est Glom Filt Rate - Afr Amer 108 mL/min (>60); Estimated Creatinine Clearance 69.09 ml/min; Glucose 88 mg/dL (74-106); Sodium Level 138 mmol/L (136-145)
[2020-09-03 13:17] VITALS: BP 152/86; PULSE 61; RESP 20; O2SAT 98
== END 2020-09-03 13:17 | disposition home or self-care (01) ==
LOC: ED 12:38
PROVIDERS: Emergency Provider Emergency Medicine; PCP Family Medicine
DX: I10 Essential (primary) hypertension (principal); Z79.899 Other long term (current) drug therapy; Z79.82 Long term (current) use of aspirin
CPT/HCPCS: 80048; 85025; 93005; 99284

== ENCOUNTER → 2020-09-07 15:01 | Outpatient (CLI) | payer SELFPAY ==
[2020-09-03 11:50] VITALS: BMI 25.0
--- NOTE | 2020-09-07 15:07 | CT_ITS ---
STUDY: CT CERVICAL SPINE WITHOUT CONTRAST REASON FOR EXAM: Male, 75 years old. DISP FX 4TH CERVICAL VERTEBRA INIT FOR CLOS FX RADIATION DOSAGE (If Supplied By Facility): CTDIvol = ( 21.73 ) mGy, DLP = ( 454.39 ) mGycm TECHNIQUE: High resolution transaxial imaging was performed without contrast material. Sagittal and coronal images were reconstructed. Individualized dose optimization techniques were used for this CT. COMPARISON: None FINDINGS: Normal craniovertebral junction. There are degenerative changes of the anterior atlantoaxial articulation. Normal odontoid process. Normal cervical lordosis. Nondisplaced fracture along the anterior inferior aspect of the endplate of the C4 vertebrae. 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 No significant stenosis seen. C3-4: Mild degree of disc space narrowing. Minimal anterior listhesis of C3 on C4. Facet joint osteoarthritis and hypertrophy with mild degree of bilateral neural foraminal stenosis. C4-5: Nondisplaced fracture along the anterior aspect of the inferior endplate of the C4 vertebrae. There is evidence of facet joint osteoarthritis and hypertrophy worse on the left side with uncovertebral arthrosis. Moderate degree of bilateral neural foraminal stenosis. C5-6: Mild degree of disc space narrowing. Uncovertebral arthrosis causing bilateral neural foraminal stenosis worse on the right side. C6-7: Mild degree of disc space narrowing. C7-T1: Normal endplates. Normal disc height and morphology. Normal central canal and intervertebral neuroforamina. Scarring in both upper lobes. CT/Spine Cervical without Contras IMPRESSION: Multilevel degenerative changes, as described above. Nondisplaced fracture along the anterior aspect of the inferior endplate of the C4 vertebrae. Electronically Signed: Iván Parks MD at 15:40 EDT , Service support ,
== END ==
PROVIDERS: PCP Family Medicine; Referring Provider Orthopaedic Surgery; Visit Provider Orthopaedic Surgery
DX: S12.300A Unspecified displaced fracture of fourth cervical vertebra, initial encounter for closed fracture (principal)
CPT/HCPCS: 72125

== ENCOUNTER 2024-11-01 21:22 | Emergency (ER) | payer OTHER, SELFPAY ==
[2024-11-01 21:23] VITALS: BP 148/95; PULSE 100; RESP 18; TEMP 36.6; O2SAT 97; BMI 26.1
[2024-11-01 22:10] LABS: Hematocrit 38.0 % (40-54); Hemoglobin 12.9 g/dL (13.0-16.5); Immature Granulocytes Count 0.030 X10^3/uL (0.0-0.0); Mean Corp Hgb Conc 33.9 g/dL (32-36); Mean Corpuscular Volume 87.2 fL (80-94); Mean Platelet Vol. 8.5 fl (6.2-12.0); NRBC Flagged by Analyzer 0 % (0-5); Platelet Count 232 K/mm3 (150-450); RBC Distribution Width CV 12.4 % (11.6-14.6); RBC Distribution Width SD 39.8 fl (35.1-43.9); Red Blood Count 4.36 M/mm3 (4.6-6.2); White Blood Count 7.4 K/mm3 (4.4-11.0)
[2024-11-01 22:31] LABS: AST(SGOT) 19 U/L (<=37); Alanine Aminotransfer ALT/SGPT 15 U/L (<=46); Albumin, Serum 3.9 g/dL (3.4-4.8); Alkaline Phosphatase 90 U/L (40-129); Anion Gap 12 (5-15); BUN 19 mg/dL (4-19); BUN/Creat Ratio 21.3 RATIO (10-20); Calcium,Total 9.4 mg/dL (7.6-11.0); Carbon Dioxide 25.8 mmol/L (21.0-32.0); Chloride 98 mmol/L (98-108); Estimated Creatinine Clearance 64.04 ml/min (50-250); Globulin 3.7 g/dL (2.2-4.2); Glucose 97 mg/dL (70-99); Lipase 110 U/L (13-75); Potassium 4.0 mmol/L (3.3-5.1)
--- OUTSIDE RECORDS SUMMARY | 2024-11-01 22:47 | XMS RPT_ITS | CCD ---
Author Organization [place] [employer] [facility] Results Test Name Value Interpretation Reference Range Facil ity Spine Cervical without Contr ason 09-07-2020 Spine Cervical without Contras [facility] Imaging Services [address] [place] [address] Spine Cervical without Contras MR#: [id number] Acct: [id number] Name: ERNESTINA FOSTER Rep #: [id number] : 1945 M 75 From: Iván ray MD PCP: Dr. Michael Hyman, Status: REG CLI Study: Spine Cervical without Contras Date of Exam: 0 09/07/20 Exam# [id number] Ordering Dr: Leonel Diego DO STUDY: CT CERVICAL SPINE WITHOUT CONTRAST REASON FOR EXAM: Male, 75 years old. DISP FX 4TH CERVICAL VERTEBRA INIT FOR CLOS FX RADIATION DOSAGE (If Supplied By Facility): CTDIvol = ( 21.73 ) mGy, DLP = ( 454.39 ) mGycm TECHNIQUE: High resolution transaxial imaging was performed without contrast material. Sagittal and coronal images were reconstructed. Individualized dose optimization techniques were used for this CT. COMPARISON: None FINDINGS: Normal craniovertebral junction. There are degenerative changes of the anterior atlantoaxial articulation. Normal odontoid process. Normal cervical lordosis. Nondisplaced fracture along the anterior inferior aspect of the endplate of the C4 vertebrae. 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 No significant stenosis seen. C3-4: Mild degree of disc space narrowing. Minimal anterior listhesis of C3 on C4. Facet joint osteoarthritis and hypertrophy with mild degree of bilateral neural foraminal stenosis. C4-5: Nondisplaced fracture along the anterior aspect of the inferior endplate of the C4 vertebrae. There is evidence of facet joint osteoarthritis and hypertrophy worse on the left side with uncovertebral arthrosis. Moderate degree of bilateral neural foraminal stenosis. C5-6: Mild degree of disc space narrowing. Uncovertebral arthrosis causing bilateral neural foraminal stenosis worse on the right side. C6-7: Mild degree of disc space narrowing. C7-T1: Normal endplates. Normal disc height and morphology. Normal central canal and intervertebral neuroforamina. Scarring in both upper lobes. CT/Spine Cervical without Contras IMPRESSION: Multilevel degenerative changes, as described above. Nondisplaced fracture along the anterior aspect of the inferior endplate of the C4 vertebrae. Electronically Signed: Iván Parks MD at 15:40 EDT , Service support , CC: Dr. Leonel Diego DO; Dr. Michael Hyman DO Associate Sales: Signed Normal [facility] 12 Lead EKGon 09-03-2020 12 Lead EKG [facility] Cardiovascular Services [address] [place] [address] 12 Lead EKG 09/03/20 1207 MR#: [id number] Acct: [id number] Name: ERNESTINA FOSTER Rep #: [id number] : 1945 75 From: Corey Donaldson MD Attending Dr: Status: DEP ER Ordering Dr: Papi Ramon MD Date: 09/03/20 Location: ED Sex: M C Admitted: Test Reason : HYPERTENSION Blood Pressure : / mmHG Vent. Rate : 065 BPM Atrial Rate : 065 BPM P-R Int : 158 ms QRS Dur : 086 ms QT Int : 404 ms P-R-T Axes : 029 000 019 degrees QTc Int : 420 ms Normal sinus rhythm Normal ECG Confirmed by ANIKA HARRIS, COREY ([id number]), production editor ALEXANDER MORALES ([id number]) on 09/04/2020 1:00:03 PM Referred By: DATSKO Confirmed By:COREY DONALDSON MD 09/04/20 1300 Date Corey Donaldson MD CC: Dr. Papi Ramon MD; Dr. Michael Hyman DO Signed Normal [facility] Basic Metabolic Profile (BMP )on 09-03-2020 BUN/CRE 27.1 RATIO High 10-20 [facility] Comment on above: Performed By: #### L 500.2500, L100.0100 #### [facility] [address] [place], [address] CA,Total 9.0 mg/dL Normal 8.5-10.1 [facility] Comment on above: Performed By: #### L 500.2500, L100.0100 #### [facility] [address] [place], [address] Chloride [Moles/Vol] 106 mmol/L Normal 98-107 [facility] Comment on above: Performed By: #### L 500.2500, L100.0100 #### [facility] [address] [place], [address] CO2 [Moles/Vol] 26.0 mmol/L Normal 21.0-32.0 [facility] Comment on above: Performed By: #### L 500.2500, L100.0100 #### [facility] [address] [place], [address] Creatinine [Mass/Vol] 0.88 mg/dL Normal 0.70-1.30 [facility] Comment on above: Result Comment: The validity of the calculated GFR GFRAA in patients over 70 years has not been determined. Clinical correlation is essential. Performed By: #### L 500.2500, L100.0100 #### [facility] [address] [place], [address] ECRCL 69.09 ml/min Normal [facility] Comment on above: Performed By: #### L 500.2500, L100.0100 #### [facility] [address] [place], [address] EST GFR - AA 108 mL/min Normal >60 [facility] Comment on above: Result Comment: Afri can [place] GFR Calc Performed By: #### L 500.2500, L100.0100 #### [facility] [address] [place], [address] GAP 6 Normal 5-15 [facility] Comment on above: Performed By: #### L 500.2500, L100.0100 #### [facility] [address] [place], [address] GFR/1.73 sq M.predicted among non-blacks MDRD (S/P/Bld) [Vol rate/Area] 89 mL/min/{1.73_m2} Normal >60 [facility] Comment on above: Result Comment: Non- GFR Calc Performed By: #### L 500.2500, L100.0100 #### [facility] [address] [place], [address] Glucose [Mass/Vol] 88 mg/dL Normal 74-106 [facility] Comment on above: Result Comment: Dimas rodrigues note revised GLUCOSE reference range effective 2017. Performed By: #### L 500.2500, L100.0100 #### [facility] [address] [place], [address] Potassium [Moles/Vol] 4.0 mmol/L Normal 3.5-5.1 [facility] Comment on above: Performed By: #### L 500.2500, L100.0100 #### [facility] [address] [place], [address] Sodium [Moles/Vol] 138 mmol/L Normal 136-145 [facility] Comment on above: Performed By: #### L 500.2500, L100.0100 #### [facility] [address] [place], [address] Urea nitrogen [Mass/Vol] 24 mg/dL High 7-18 [facility] Comment on above: Performed By: #### L 500.2500, L100.0100 #### [facility] [address] [place], [address] CBC W/Diff, Automatedon - Absolute Lymph 1.91 X10 3/uL Normal 0.83-4.51 [facility] Comment on above: Performed By: #### L 500.2500, L100.0100 #### [facility] [address] [place], [address] Absolute Neut 2.6 X10 3/uL Normal 2.0-7.7 [facility] Comment on above: Performed By: #### L 500.2500, L100.0100 #### [facility] [address] [place], [address] Basophils/100 WBC (Bld) 0.6 % Normal 0-1 [facility] Comment on above: Performed By: #### L 500.2500, L100.0100 #### [facility] [address] [place], [address] Eosinophils/100 WBC (Bld) 3.6 % Normal 0-5 [facility] Comment on above: Performed By: #### L 500.2500, L100.0100 #### [facility] [address] [place], [address] Erythrocyte distribution width (RBC) [Ratio] 12.5 % Normal 11.6-14.6 [facility] Comment on above: Performed By: #### L 500.2500, L100.0100 #### [facility] [address] [place], [address] Hematocrit (Bld) [Volume fraction] 40.0 % Normal 40-54 [facility] Comment on above: Performed By: #### L 500.2500, L100.0100 #### [facility] [address] [place], [address] Hemoglobin (Bld) [Mass/Vol] 13.6 g/dL Normal 13.0-16.5 [facility] Comment on above: Performed By: #### L 500.2500, L100.0100 #### [facility] [address] [place], [address] IG% 0.200 Normal 0.0-0.9 [facility] Comment on above: Result Comment: IG% - Immature Granulocytes (promyelocytes, myelocytes and metamyelocytes) > 1% indicates that a LEFT SHIFT is Present. Performed By: #### L 500.2500, L100.0100 #### [facility] [address] [place], [address] Lymphocytes/100 WBC (Bld) 37.7 % Normal 19-41 [facility] Comment on above: Performed By: #### L 500.2500, L100.0100 #### [facility] [address] [place], [address] MCH (RBC) [Entitic mass] 29.6 pg Normal 27.0-32.0 [facility] Comment on above: Performed By: #### L 500.2500, L100.0100 #### [facility] [address] [place], [address] MCHC (RBC) [Mass/Vol] 34.0 g/dL Normal 32-36 [facility] Comment on above: Performed By: #### L 500.2500, L100.0100 #### [facility] [address] [place], [address] MCV (RBC) [Entitic vol] 87.1 fL Normal 80-94 [facility] Comment on above: Performed By: #### L 500.2500, L100.0100 #### [facility] [address] [place], [address] Monocytes/100 WBC (Bld) 7.5 % Normal 0-10 [facility] Comment on above: Performed By: #### L 500.2500, L100.0100 #### [facility] [address] [place], [address] Neutrophils/100 WBC (Bld) 50.4 % Normal 47-70 [facility] Comment on above: Performed By: #### L 500.2500, L100.0100 #### [facility] [address] [place], [address] Nucleated RBC (Bld) [#/Vol] 0 10*3/uL Normal 0-5 [facility] Comment on above: Performed By: #### L 500.2500, L100.0100 #### [facility] [address] [place], [address] Platelet mean volume (Bld) [Entitic vol] 8.2 fL Normal 6.2-12.0 [facility] Comment on above: Performed By: #### L 500.2500, L100.0100 #### [facility] [address] [place], [address] Platelets (Bld) [#/Vol] 157 10*3/uL Normal 150-450 [facility] Comment on above: Performed By: #### L 500.2500, L100.0100 #### [facility] [address] [place], [address] RBC (Bld) [#/Vol] 4.59 10*6/uL Low 4.6-6.2 [facility] Comment on above: Performed By: #### L 500.2500, L100.0100 #### [facility] [address] [place], [address] RDW SD 39.8 fl Normal 35.1-43.9 [facility] Comment on above: Performed By: #### L 500.2500, L100.0100 #### [facility] [address] [place], [address] WBC (Bld) [#/Vol] 5.1 10*3/uL Normal 4.4-11.0 [facility] Comment on above: Performed By: #### L 500.2500, L100.0100 #### [facility] [address] [place], [address] Emergency Department Summary on 09-03-2020 Emergency Department Summary [facility] Medical Records Department [address] [place] [address] Emergency Department Summary 09/03/20 MR#: [id number] Acct: [id number] Name: ERNESTINA FOSTER Rep #: [id number] : 1945 75 From: Papi Ramon MD PCP: Dr. Michael Hyman, Status:REG ER Location: ED HPI History of Present Illness Chief Complaint: Hypertension Informant: patient Onset/Context/Timing Onset: Today Narrative Narrative: The patient is a 75-year-old male with history of hypertension who was just recently started on antihypertensives. The patient presents because his blood pressure was elevated this morning. He states he did feel mildly lightheaded but that is since resolved. He states he normally did not monitor his blood pressure. He did see his primary care in the office on Monday and was started on telmisartan 40 mg. He takes it in the morning. He denies chest pain. He denies shortness of breath. He denies vision change, nausea, or other systemic symptoms. He was just concerned that his blood pressure was still elevated despite medical treatment. [facility] Medical History Hypertension No previous significant medical history Home Medications aspirin 81 mg PO DAILY 09/03/20 [History Last Taken Unknown] telmisartan 40 mg PO DAILY 09/03/20 [History Last Taken Unknown] Allergy/AdvReac Type Severity Reaction Status Date / Time No Known Allergies Allergy Verified 09/03/20 11:53 Social History Smoking Status: Never smoker ROS ROS ED Constitutional Constitutional ED: Denies chills or fever(s) Eyes Eyes: Denies blurry vision or change in vision ENT ENT ED: Denies ear pain or sore throat Cardiovascular Cardiovascular: Denies chest pain or palpitations Respiratory/Chest Respiratory/Chest: Denies cough, dyspnea or dyspnea on exertion Gastrointestinal Gastrointestinal: Denies abdominal pain, nausea or vomiting Genitourinary Genitourinary ED: Denies dysuria or urinary frequency Musculoskeletal Musculoskeletal: Denies arthralgias or myalgias Integumentary Denies rash Neurologic Neurologic: Denies headache(s) or paresthesias Psychiatric Psychiatric: Denies anxiety or depression Endocrine Endocrinology: Denies polydipsia or polyuria Allergic/Immunologic Allergic/Immunologic ED: Denies urticaria EXAM Physical Exam Const Vital Signs: 09/03/20 11:50 09/03/20 11:56 Temperature 97.3 F L Temperature Source Temporal Pulse Rate 72 Respiratory Rate 16 Respiratory Effort Normal Non-Labored Respiratory Pattern Normal Blood Pressure 161/75 H Blood Pressure Mean 103 Pulse Ox 98 Oxygen Delivery Method Room Air Positive well nourished and well developed General Appearance ED: well developed HEENT Reports normocephalic, head/scalp atraumatic and moist mucous membranes Eyes PERRL and EOMs intact bilaterally Neck no lymphadenopathy and supple General: Negative for tenderness Chest Wall inspection of chest normal Resp normal respiratory effort and clear to auscultation bilaterally Cardio regular rate, regular rhythm and no murmurs GI normal to inspection, nondistended, normoactive bowel sounds Palpation: Negative for tender, guarding or rebound tenderness present Back/Spine no CVA tenderness Cervical Spine: Negative for cervical spine tenderness Thoracic Spine / Upper Back: Negative for thoracic spinal tenderness Extremity normal to inspection General Extremety ED: Negative for tenderness Neuro oriented x3 and CN's II-XII intact bilaterally Neuro Narrative: No focal deficits appreciated. Sensorium / Orientation: alert Psych mental status grossly normal Skin no rashes or lesions noted, no wounds and skin turgor normal MDM MDM MDM Narrative Medical decision making narrative: The patient presents with hypertension. He is asymptomatic. He was just concerned because his blood pressure was still elevated after taking medication for 3 days. I did obtain metabolic work-up. EKG shows sinus rhythm. There is no evidence of acute ischemia. Normal axis and intervals. It was unchanged from prior. Labs are unremarkable. Patient was observed. He is resting comfortably. I did have a long conversation with him about the duration of medications and that sometimes it takes time to have good control. He has no other symptoms. I do feel that he safe outpatient follow-up. Impression 1. Hypertension Lab Data Attestation: I reviewed the patient's lab results. Labs: Laboratory Results - last 24 hr 09/03/20 09/03/20 12:21 12:21 WBC 5.1 RBC 4.59 L Hgb 13.6 Hct 40.0 MCV 87.1 MCH 29.6 MCHC 34.0 RDW Std Deviation 39.8 RDW Coeff of [place] 12.5 Plt Count 157 MPV 8 (more content not included)... Normal [facility] Summary Purpose Family History No Family History Records Found Advance Directives No Advanced Directives Records Found Additional Source Comments (unrecognized sect ion and content) No Status Records Found INFORMATION SOURCE (unrecogn ized section and content) DATE CREATED AUTHOR 09/09/2020 [facility] FOR RECORDS PERTAINING TO PATIENTS WHO ARE OR HAVE BEEN ENROLLED IN A CHEMICAL DEPENDENCY/SUBSTANCEABUSE PROGRAM, SOME INFORMATION MAY BE OMITTED. This clinical summary was aggregated from multiple sources. Caution should be exercised in using it in the provision of clinical care. This summary normalizes information from multiple sources, and as a consequence, information in this document may materially change the coding, format and clinical context of patient data. In addition, data may be omitted in some cases. CLINICAL DECISIONS SHOULD BE BASED ON THE PRIMARY CLINICAL RECORDS. [employer] provides no warranty or guarantee of the accuracy or completeness of information in this document.
--- NOTE | 2024-11-01 23:07 | CT_ITS ---
PROCEDURE: ABDOMEN/PELVIS W IV CONT ONLY 11/01/2024 REASON FOR EXAM: RLQ ABD PAIN TECHNIQUE: ABDOMEN/PELVIS W IV CONT ONLY Coronal and Sagittal reconstruction series were provided. CONTRAST: Isovue-300 50 VOLUME: 100 mL One or more dose reduction techniques were used (e.g., Automated exposure control, adjustment of the mA and/or kV according to patient size, use of iterative reconstruction technique. RADIATION DOSE SUMMARY: CTDlvol: 14.02 MGy DLP: 749 mGycm COMPARISON: CT scan on 04/15/2019. FINDINGS: Fluid-filled colon, possibly secondary to diarrhea/enteritis. Mild prostatomegaly. Diffuse thickening of the bladder. Chronic bladder outlet obstruction versus mild cystitis. Small sliding hiatal hernia. Diffuse thickening of the stomach suggestive of gastritis. The visualized lung bases are unremarkable. Normal liver. Normal gallbladder and extrahepatic biliary system. Normal spleen. Normal pancreas. Normal bilateral adrenal glands. Normal size of the right kidney. There is no right renal mass. There are no right renal calculi. There is no right hydronephrosis. Normal visualized right ureter. Normal size of the left kidney. There is no left renal mass. There are no left renal calculi. There is no left hydronephrosis. Normal visualized left ureter. Normal small intestine. The appendix is visualized and appears normal. There is no demonstrated peritoneal fluid. Normal inferior vena cava. Normal retroperitoneum. There is no pelvic mass lesion or lymphadenopathy. There is no pelvic fluid. Bilateral fat containing inguinal hernias without incarceration. Diffuse spondylosis. CT/Abdomen/Pelvis W IV Cont ONLY IMPRESSION: Fluid-filled colon, possibly secondary to diarrhea/enteritis. Mild prostatomegaly. Diffuse thickening of the bladder. Chronic bladder outlet obstruction versus m ild cystitis. Small sliding hiatal hernia. Diffuse thickening of the stomach suggestive of gastritis. Normal appendix. [facility]
--- NOTE | 2024-11-01 23:18 | EDS_ITS ---
HPI HPI - GI History of Present Illness Chief Complaint: Abd Pain Informant: patient and friend Narrative Narrative: Patient is an 79-year-old male with no history of any abdominal surgeries and history of hypertension presenting with intermittent right lower quadrant abdominal pain has been worsening for the past 2 days. I states that comes in waves. Does radiate to his right back. It tends to be worse at night and makes it so he cannot sleep. He gets very restless at night. Did take natural supplement for pain around 7 PM and seems to be doing better since 915. States the pain is more but sharp ache. Denies associated fever, nausea or vomiting. States his bowel movements have been regular and had only a small bowel movement today and more regular bowel movement yesterday after taking a stool softener and increase fiber. Wears a back brace and feels like this makes him constipated because it puts pressure on his gut. He denies any urinary symptoms such as frequency, incomplete emptying or hematuria. Denies a history of kidneys stones. Denies any chest pain. States he has been short of breath throughout the summer because of the heat. No relief with Tylenol or ibuprofen the last few days. Friends at the bedside do note that he has been more restless at night for the past month and they are not sure if this is related. No other complaints or concerns at this time. States has never had anything like this before. [facility] Medical History Broken leg Hypertension No previous significant medical history Home Medications ?Medication ?Instructions ?Recorded ?Last Taken ?Type aspirin 81 mg tablet 81 mg PO DAILY 09/03/20 Unkn own History telmisartan 40 mg tablet 40 mg PO DAILY 09/03/20 Unkn own History amlodipine 2.5 mg tablet 2.5 mg PO DAILY 11/01/24 Unk nown History rosuvastatin 10 mg tablet 10 mg PO DAILY 11/01/24 Unkn own History dicyclomine 10 mg capsule 10 mg PO TID PRN abdominal p ain 11/02/24 Unknown Rx #20 caps omeprazole 20 mg capsule,delayed 20 mg PO DAILY #30 CA PSULES 11/02/24 Unknown Rx release Allergy/AdvReac Type Severity Reaction Status Date / Time No Known Allergies Allergy Verified 11/01/24 21:23 Social History Smoking Status: Never smoker ROS ROS ED Constitutional Constitutional ED: Denies chills or fever(s) Respiratory/Chest Respiratory/Chest: Denies cough Gastrointestinal Gastrointestinal: Reports abdominal pain and constipation; Denies diarrhea, melena, nausea or vomiting Musculoskeletal Musculoskeletal: Reports back pain; Denies arthralgias or myalgias Integumentary Denies rash Neurologic Neurologic: Denies weakness Hematologic/Lymphatic Hematologic/Lymphatic: Denies easy bleeding or easy bruising EXAM Physical Exam Const Vital Signs: 11/01/24 21:23 11/01/24 23:22 11/02/24 01:00 Temperature 97.8 F Temperature Source Temporal Pulse Rate 100 102 H 100 Respiratory Rate 18 16 16 Blood Pressure 148/95 H 154/87 H 172/102 H Blood Pressure Mean 112 109 125 Pulse Ox 97 98 98 Oxygen Delivery Method Room Air Room Air 11/02/24 01:53 Temperature 97.8 F Temperature Source Pulse Rate 94 Respiratory Rate 16 Blood Pressure 165/93 H Blood Pressure Mean 117 Pulse Ox 94 Oxygen Delivery Method Positive well nourished and well developed General Appearance ED: well developed and NAD; Negative for pallor HEENT Reports moist mucous membranes Eyes General Eye ED: Negative for pale conjunctiva Neck supple Resp normal respiratory effort and clear to auscultation bilaterally Cardio regular rate and regular rhythm GI GI Narrative: Mild tenderness in the right lower quadrant Palpation: soft; Negative for guarding, rigid, hernia or mass Extremity full ROM General Extremety ED: Negative for edema General Extremity: Negative for edema Neuro Sensorium / Orientation: alert, oriented to person, oriented to place and oriented to time Motor Exam: Negative for general weakness Psych mental status grossly normal and thought process normal Skin General Skin Exam: Negative for jaundice or pallor MDM MDM MDM Narrative Medical decision making narrative: Patient evaluated for right lower quadrant abdominal pain. Appears nontoxic in no acute distress. Differential includes gastroenteritis, diverticulitis, appendicitis, IBS, renal colic and abdominal wall pain. Vital signs significant for mildly elevated blood pressure but otherwise stable in the emergency room. CBC shows mild anemia with a hemoglobin 12.9 however this appears near his baseline. No leukocytosis. CMP normal. Lipase minimally elevated at 110 but this is not consistent with acute pancreatitis. Urinalysis is not consistent with infection. Initially patient declined pain medication but then did request something is given Toradol. CT of the abdomen pelvis shows a fluid-filled colon possibly secondary to diarrhea/enteritis, mild prostamegaly with thickening of the bladder diffusely (chronic bladder outlet obstruction versus mild cystitis) and diffuse thickening of the stomach suggestive of gastritis. Patient denying urinary symptoms, fever, leukocytosis and urinalysis is not consistent with UTI. Patient formed no findings. Suspect this is more of a gastroenteritis based on the CT findings. Given return precautions. Will be started on Bentyl to help with the pain (given first dose in the emergency room) as well as PPI therapy given the gastritis on exam. Given outpatient referral for GI. Given return precautions. Discharged home in stable condition. Patient and family agreeable plan of care. Lab Data Attestation: I reviewed the patient's lab results. Labs: Laboratory Results - last 24 hr 11/01/24 11/01/24 21:53 23:15 WBC 7.4 RBC 4.36 L Hgb 12.9 L Hct 38.0 L MCV 87.2 MCH 29.6 MCHC 33.9 RDW Std Deviation 39.8 RDW Coeff of [place] 12.4 Plt Count 232 MPV 8.5 Immature Gran % (Auto) 0.400 Neut % (Auto) 67.1 Lymph % (Auto) 20.2 [place] % (Auto) 8.4 Eos % (Auto) 3.0 Baso % (Auto) 0.9 Absolute Neuts (auto) 5.0 Absolute Lymphs (auto) 1.49 Nucleated RBC % 0 Sodium 135 Potassium 4.0 Chloride 98 Carbon Dioxide 25.8 Anion Gap 12 BUN 19 Creatinine 0.89 Estim Creat Clear Calc 64.04 Est GFR (MDRD) Non-Af 87 BUN/Creatinine Ratio 21.3 H Glucose 97 Calcium 9.4 Total Bilirubin 0.62 AST 19 ALT 15 Alkaline Phosphatase 90 Total Protein 7.6 Albumin 3.9 Globulin 3.7 Albumin/Globulin Ratio 1.1 Lipase 110 H Urine Color Straw Urine Clarity Clear Urine pH 6.5 Ur Specific [place] 1.010 Urine Protein 30 H Urine Glucose (UA) Normal Urine Ketones Negative Urine Occult Blood Negative Urine Nitrite Negative Urine Bilirubin Negative Urine Urobilinogen Normal Ur Leukocyte Esterase Negative Urine RBC 0 SEEN Urine WBC 0-5 SEEN Ur Squamous Epith Cells 0-5 SEEN Urine Bacteria RARE Urine Mucus 0 SEEN Radiography Diagnostic Testing: Clinical Impression(s) from Imaging Studies Abdomen/Pelvis CT 11/01/24 23:07 IMPRESSION: Fluid-filled colon, possibly secondary to diarrhea/enteritis. Mild prostatomegaly. Diffuse thickening of the bladder. Chronic bladder outlet obstruction versus mild cystitis. Small sliding hiatal hernia. Diffuse thickening of the stomach suggestive of gastritis. Normal appendix. Reading Location: [place] [address] Discharge Plan Triage Chief Complaint: Abd Pain ED Provider: Kenyatta Avalos Dx/Rx/DC Orders Clinical Impression: Abdominal pain, acute, right lower quadrant, Enlarged prostate Instructions: ED Abdominal Pain Unkn Cause Male... Prescriptions: New dicyclomine 10 mg capsule 10 mg PO TID PRN (Reason: abdominal pain) Qty: 20 0RF omeprazole 20 mg capsule,delayed release(DR/EC) 20 mg PO DAILY Qty: 30 0RF No Action telmisartan 40 mg Tablet 40 mg PO DAILY aspirin 81 mg Tablet 81 mg PO DAILY amlodipine 2.5 mg tablet 2.5 mg PO DAILY rosuvastatin 10 mg tablet 10 mg PO DAILY Primary Care Provider: Ryan Hurst Referrals: Ryan Hurst PA-C [Primary Care Provider] - Friend,DO Gonzalo [Med Staff - Active Staff] - Activity Restrictions/Additional Instructions: Your lab work was largely normal today. Your CT showed some inflammation of your stomach as well as your colon which could be consistent with gastroenteritis or stomach bug/virus. You might develop some diarrhea over the next 24 hours. If you have black or blood in your stool, worse abdominal pain, fever or further concerns please return to the emergency room. You have been given referral for GI specialist to follow-up with. Make sure you are drinking plenty of fluids. Your CT did show enlargement of prostate, please follow-up with your family doctor for this. Print Language: Korean Disposition Disposition: Home, Self Care Discharge Date/Time: 11/02/24 02:13
[2024-11-01 23:22] VITALS: BP 154/87; PULSE 102; RESP 16; O2SAT 98
[2024-11-01 23:25] LABS: Mucous, Urine 0 SEEN /hpf (<or=2+); Red Blood Cells-Urine 0 SEEN /hpf (0-5)
[2024-11-01 23:29] LABS: Color, Urine Straw (Yellow); Glucose, Dipstick Normal (Normal); Ketone-Dipstick Negative (Negative); Leukocyte Esterase-Dipstick Negative /ul (Negative); Nitrite-Dipstick Negative (Negative); Occult Blood-Urine Negative /ul (Negative); Protein-Dipstick 30 mg/dl (Negative); Specific Gravity, Urine 1.010 (1.002-1.030); Urine Bilirubin Dipstick Negative (Negative)
[2024-11-01 23:44] LABS: Squamous Epithelial Cells - UA 0-5 SEEN /hpf (0-5)
[2024-11-02 01:00] VITALS: BP 172/102; PULSE 100; RESP 16; O2SAT 98
[2024-11-02 01:53] VITALS: BP 165/93; PULSE 94; RESP 16; TEMP 36.6; O2SAT 94
== END 2024-11-02 02:13 | disposition home or self-care (01) ==
PROVIDERS: Emergency Provider Emergency Medicine; PCP Physician Assistant; Visit Provider Emergency Medicine
DX: R10.31 Right lower quadrant pain (principal); I10 Essential (primary) hypertension; D64.9 Anemia, unspecified; N40.0 Benign prostatic hyperplasia without lower urinary tract symptoms; Z79.82 Long term (current) use of aspirin; Z79.899 Other long term (current) drug therapy
CPT/HCPCS: 74177; 80053; 81001; 83690; 85025; 96374; 99283; Q9967; A4216

== ENCOUNTER 2024-11-03 18:30 | Emergency (ER) | payer OTHER, SELFPAY ==
[2024-11-03] VITALS (11 sets, daily range): BP systolic 122–152; BP diastolic 70–83; PULSE 97–115; RESP 16–25; TEMP 36.7–36.8; O2SAT 95–98; BMI 26.3
--- NOTE | 2024-11-03 18:35 | EKG12_ITS ---
Test Reason : NEURO Blood Pressure : */* mmHG Vent. Rate : 98 BPM Atrial Rate : 98 BPM P-R Int : 152 ms QRS Dur : 74 ms QT Int : 340 ms P-R-T Axes : 36 -10 31 degrees QTcB Int : 434 ms Sinus rhythm with Premature atrial complexes Otherwise normal ECG Confirmed by ANIKA HARRIS, SHAUN ([id number]), news copy editor GABRIELA COOLEY ([id number]) on 11/04/2024 1:09:32 PM Referred By: Confirmed By: SHAUN DONALDSON MD
[2024-11-03 18:51] LABS: Hematocrit 35.8 % (40-54); Hemoglobin 12.1 g/dL (13.0-16.5); Immature Granulocytes Count 0.020 X10^3/uL (0.0-0.0); Mean Corp Hgb Conc 33.8 g/dL (32-36); Mean Corpuscular Volume 89.3 fL (80-94); Mean Platelet Vol. 8.2 fl (6.2-12.0); NRBC Flagged by Analyzer 0 % (0-5); Platelet Count 219 K/mm3 (150-450); RBC Distribution Width CV 12.5 % (11.6-14.6); RBC Distribution Width SD 41.3 fl (35.1-43.9); Red Blood Count 4.01 M/mm3 (4.6-6.2); White Blood Count 6.4 K/mm3 (4.4-11.0)
[2024-11-03 19:10] LABS: Anion Gap 11 (5-15); BUN 26 mg/dL (4-19); BUN/Creat Ratio 21.8 RATIO (10-20); Calcium,Total 8.8 mg/dL (7.6-11.0); Carbon Dioxide 23.6 mmol/L (21.0-32.0); Chloride 103 mmol/L (98-108); Glucose 115 mg/dL (70-99); Potassium 4.0 mmol/L (3.3-5.1)
--- NOTE | 2024-11-03 19:59 | CT_ITS ---
PROCEDURE: BRAIN/HEAD WITHOUT CONTRAST 11/03/2024 REASON FOR EXAM: FACIAL DROOP Left facial droop. Slurred speech since yesterday. TECHNIQUE: BRAIN/HEAD WITHOUT CONTRAST Coronal and Sagittal reconstruction series were provided. One or more dose reduction techniques were used (e.g., Automated exposure control, adjustment of the mA and/or kV according to patient size, use of iterative reconstruction technique. RADIATION DOSE SUMMARY: CTDlvol: 44.99 mGy DLP: 863.60 mGycm COMPARISON: None. FINDINGS: Brain: Tiny punctate hyperdensities are seen in the left internal capsule most likely calcifications. No intra-axial or extra-axial hemorrhage or fluid collection. Deep white matter hypodensities, periventricular, worrisome the left is in the right. This could represent subacute or chronic infarct on the left side or bilaterally this might represent chronic small-vessel ischemic disease. Chronic process as indicated by the ex vacuo dilatation of the left lateral ventricle. CSF Spaces: Prominent ventricles and sulci due to age-related involution Sinuses/Mastoids: Clear Bones: No skull fractures CT/Brain/Head without Contrast IMPRESSION: Chronic left periventricular and deep white matter hypodensities asymmetrically greater on the left than the right with ex vacuo dilatation of the left lateral ventricle indicating a chronic process. Age-related involution and chronic small-vessel ischemic disease. [facility]
--- NOTE | 2024-11-03 20:01 | EX.ED.DYSGE1 ---
HPI History of Present Illness Chief Complaint: Neuro S/Sx Narrative Narrative: 79-year-old male past medical history of hypertension presents with slurred speech and facial droop on the left that began perhaps 24 hours ago or greater than that. He relates history to the triage nurse that he did not feel quite right yesterday at noon greater than 24 hours ago. He called of an internal feeling that did not feel right. His family notes that patient had a relative that was over yesterday evening and he did not quite look like his grandfather and that he may have had a facial droop at that time. It was more pronounced when the patient woke up at 6 AM this morning. He noticed his left eye was tearing more. He denies any headache. No chest pain, no shortness of breath or other symptoms. They thought maybe his speech was slurred, but he does have problems with memory according to his family. [facility] Medical History High cholesterol Broken leg Hypertension No previous significant medical history Home Medications ?Medication ?Instructions ?Recorded ?Last Taken ?Type aspirin 81 mg tablet 81 mg PO DAILY 09/03/20 Unknown History telmisartan 40 mg tablet 40 mg PO DAILY 09/03/20 Unknown History amlodipine 2.5 mg tablet 2.5 mg PO DAILY 11/01/24 Unknown History rosuvastatin 10 mg tablet 10 mg PO DAILY 11/01/24 Unknown History dicyclomine 10 mg capsule 10 mg PO TID PRN abdominal pain 11/02/24 Unknown Rx #20 caps omeprazole 20 mg capsule,delayed 20 mg PO DAILY #30 CAPSULES 11/02/24 Unknown Rx release acyclovir 400 mg tablet 1 tab PO 5X/DAY 10 days #50 tabs 11/03/24 Unknown Rx artificial tears(hypromellose) 0.5 1 drp LEFT EYE Q4H PRN dry eyes 11/03/24 Unknown Rx % eye drops #15 mL metoprolol tartrate 25 mg tablet 25 mg PO BID #60 tabs 11/03/24 Unknown Rx prednisone 50 mg tablet 50 mg PO DAILY 5 days #5 tabs 11/03/24 Unknown Rx Allergy/AdvReac Type Severity Reaction Status Date / Time No Known Allergies Allergy Verified 11/03/24 18:32 Social History Smoking Status: Never smoker ROS ROS ED ROS Narrative Review of systems positive for slurred speech and left-sided facial droop. Positive left eye tearing. No headache, no chest pain, no shortness of breath or other symptoms. EXAM Physical Exam Narrative Exam Narrative: Afebrile. Vital signs noted. Nontoxic-appearing. Cardiovascular examination reveals an irregularly irregular rhythm at [address] changes. No STEMI. Lungs are clear to auscultation bilaterally. Abdomen is soft and nontender without guarding or rebound. Positive bowel sounds. 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 There is left forehead paralysis and involvement noted. He is unable to completely close his left eye at times, and it is tearing. Positive left-sided facial droop. NIH stroke scale otherwise negative. He would score 2 for the facial droop. Const Vital Signs: 11/03/24 18:32 11/03/24 18:35 11/03/24 19:31 Temperature 98.3 F Temperature Source Oral Pulse Rate 99 97 Respiratory Rate 16 22 H Blood Pressure 152/70 H 142/73 H Blood Pressure Mean 97 96 Pulse Ox 96 96 96 Oxygen Delivery Method Room Air Room Air Room Air 11/03/24 19:52 11/03/24 20:00 11/03/24 20:37 Temperature Temperature Source Pulse Rate 99 104 H 102 H Respiratory Rate 19 H 23 H Blood Pressure 122/75 H Blood Pressure Mean 89 Pulse Ox 96 95 96 Oxygen Delivery Method 11/03/24 20:45 11/03/24 20:57 11/03/24 21:00 Temperature Temperature Source Pulse Rate 101 H 104 H 101 H Respiratory Rate 20 H 19 H 25 H Blood Pressure 152/80 H 142/76 H Blood Pressure Mean 100 94 Pulse Ox 96 97 97 Oxygen Delivery Method 11/03/24 21:15 11/03/24 22:11 11/03/24 22:11 Temperature 98.0 F Temperature Source Pulse Rate 101 H 115 H 115 H Respiratory Rate 20 H 18 18 Blood Pressure 142/73 H 149/83 H 149/83 H Blood Pressure Mean 91 105 105 Pulse Ox 96 98 98 Oxygen Delivery Method Room Air MDM MDM MDM Narrative Medical decision making narrative: There is definite confusion as to when his symptoms started. He had told the triage nurse and on the way up here that his symptoms started at noon yesterday. Even if they began at 7 PM when they noticed that he may have looked different, it is greater than 24 hours ago. Regardless, I do not feel that stroke team is indicated because his exam is more consistent with a Trevizo's palsy. I will obtain CT of the brain but I do not feel CTA of the head and neck is indicated. I reviewed his laboratory work and he has a normal white count of 6.4 with hemoglobin 12.1, hematocrit 35.8, platelet count 219. BUN 26 and creatinine elevated at 1.21. Glucose 115. Sodium normal potassium also normal. His initial EKG was interpreted by myself independently as sinus rhythm with PACs at [address] changes. No STEMI. RN ordered a repeat EKG as it appeared that he was in atrial fibrillation without history. EKG #2 interpreted by myself does show atrial fibrillation with PVC but no acute ST changes. 94 bpm. No STEMI. I reviewed with his family his medications and he does not take a beta-hilario. He does not see a ukrainian folk arts instructor as well. I reviewed the radiology report of the CT of the brain. There is no acute process. There are chronic changes. Chronic left periventricular and deep white matter hypodensities asymmetrically greater on the left than the right with ex vacuo dilatation of the left lateral ventricle indicating a chronic process. Age-related involution and chronic small-vessel ischemic disease. Upon repeat examination, patient is now in normal sinus rhythm again. I discussed patient with Dr. Phillips with cardiology who agrees that the patient can be discharged and started on Eliquis and metoprolol tartrate 25 mg twice a day. I discussed the risk benefits with the patient and his family. Initially they were agreeable to Eliquis and were told of the risk of stroke development with paroxysmal atrial fibrillation, as well as the risks of intracranial and gastrointestinal hemorrhage. Initially they were agreeable to being started on Eliquis, but I was informed by the RN that they did not want to take any medications until seen by cardiology. And rediscussion with the patient and his family, they are agreeable for him to take metoprolol but not the blood thinner. He was given his first dose of metoprolol here. Additionally, he was started on prednisone and acyclovir for his Trevizo's palsy. He was written prescriptions for both of these medications as well as artificial tears. Once again, I do not feel he requires admission at this time as he has more of a Trevizo's palsy and paroxysmal atrial fibrillation but is currently in normal sinus rhythm. Return instructions to the emergency department were reviewed. Once again, after risks benefits explained with the use of anticoagulation, patient has chosen did not take Eliquis or Xarelto currently. Disposition is discharged home in stable condition. History & Record Review Discussion w/independent historian: Patient and Family Lab Data Attestation: I reviewed the patient's lab results. Labs: Laboratory Results - last 24 hr 11/03/24 18:45 WBC 6.4 RBC 4.01 L Hgb 12.1 L Hct 35.8 L MCV 89.3 MCH 30.2 MCHC 33.8 RDW Std Deviation 41.3 RDW Coeff of [place] 12.5 Plt Count 219 MPV 8.2 Immature Gran % (Auto) 0.300 Neut % (Auto) 64.2 Lymph % (Auto) 22.0 [place] % (Auto) 9.0 Eos % (Auto) 3.9 Baso % (Auto) 0.6 Absolute Neuts (auto) 4.1 Absolute Lymphs (auto) 1.42 Nucleated RBC % 0 Sodium 137 Potassium 4.0 Chloride 103 Carbon Dioxide 23.6 Anion Gap 11 BUN 26 H Creatinine 1.21 H Est GFR (MDRD) Non-Af 61 BUN/Creatinine Ratio 21.8 H Glucose 115 H Calcium 8.8 Radiography Diagnostic Testing: Clinical Impression(s) from Imaging Studies Brain CT 11/03/24 19:59 IMPRESSION: Chronic left periventricular and deep white matter hypodensities asymmetrically greater on the left than the right with ex vacuo dilatation of the left lateral ventricle indicating a chronic process. Age-related involution and chronic small-vessel ischemic disease. Reading Location: [facility] Management Discussion w/another healthcare provider: Community Health Nursing Director (Dr. Phillips, cardiology) Discharge Plan Triage Chief Complaint: Neuro S/Sx ED Provider: Juan Ramon Abreu Dx/Rx/DC Orders Clinical Impression: Left-sided Trevizo's palsy, New onset atrial fibrillation Instructions: ED AFIB, ED Trevizo's Palsy Prescriptions: New metoprolol tartrate 25 mg tablet 25 mg PO BID Qty: 60 0RF acyclovir 400 mg tablet 1 tab PO 5X/DAY 10 Days Qty: 50 0RF prednisone 50 mg tablet 50 mg PO DAILY 5 Days Qty: 5 0RF artificial tears(hypromellose) 0.5 % drops 1 drp LEFT EYE Q4H PRN (Reason: dry eyes) Qty: 15 0RF No Action telmisartan 40 mg Tablet 40 mg PO DAILY aspirin 81 mg Tablet 81 mg PO DAILY amlodipine 2.5 mg tablet 2.5 mg PO DAILY rosuvastatin 10 mg tablet 10 mg PO DAILY dicyclomine 10 mg capsule 10 mg PO TID PRN (Reason: abdominal pain) Qty: 20 0RF omeprazole 20 mg capsule,delayed release(DR/EC) 20 mg PO DAILY Qty: 30 0RF Primary Care Provider: Ryan Hurst Referrals: Ryan Hurst PA-C [Primary Care Provider] - 1-2 Days if not improving Santiago Phillips MD [Med Staff - Active Staff] - 3-5 Days Activity Restrictions/Additional Instructions: Follow-up with cardiology soon as possible, within the next few days. Return to the emergency department with fast irregular heart rate. You are running the risk of stroke by not being on an anticoagulant and new onset atrial fibrillation. Take the metoprolol as directed. Regarding your Trevizo's palsy, take the prednisone, and acyclovir and use the eyedrops as directed. Follow-up with your primary care provider regarding this, and the need for other sleep medications. Print Language: Tanzanian Disposition Disposition: Home, Self Care
--- OUTSIDE RECORDS SUMMARY | 2024-11-03 20:14 | XMS RPT_ITS | CCD ---
Author Organization [facility] Care Team Providers Care Clinical Sciences Professor Name Role Phone Dr. Kenyatta Avalos DO Emergency Provider [phone] Natali TORRES, Dr. Davis Primary Care Provider [phone] Medications Current Medications Medication Drug Class(es) Dates Sig (Normalized) Sig (Original) amLODIPine 2.5 mg oral tablet (1 source) Dihydropyridine Calcium Channel Grover Start: 11-01-2024 take 1 tablet by mouth once daily Amlodipine 2.5 mg tablet Active 2.5 mg PO DAILY November 01, 2024 12:00am aspirin 81 mg oral tablet (1 source) Platelet Aggregation Inhibitor, Nonsteroidal Anti-inflammatory Drug Start: 09-03-2020 take 1 tablet by mouth once daily Aspirin 81 mg Tablet Active 81 mg PO DAILY September 03, 2020 12:00am dicyclomine hydrochloride 10 mg oral capsule (1 source) Anticholinergic Start: 11-02-2024 take 1 capsule by mouth three times daily as needed for pain Dicyclomine 10 mg capsule Active 10 mg PO THREE TIMES A DAY as needed for abdominal pain 20 0 November 02, 2024 1:57am omeprazole 20 mg delayed release oral capsule (1 source) Proton Pump Inhibitor Start: 11-02-2024 take 1 capsule by mouth once daily Omeprazole 20 mg capsule,delayed release(DR/EC) Active 20 mg PO DAILY 30 0 November 02, 2024 12:00am rosuvastatin calcium 10 mg oral tablet (1 source) HMG-CoA Reductase Inhibitor Start: 11-01-2024 take 1 tablet by mouth once daily Rosuvastatin 10 mg tablet Active 10 mg PO DAILY November 01, 2024 12:00am telmisartan 40 mg oral tablet (1 source) Angiotensin 2 Receptor Grover Start: 09-03-2020 take 1 tablet by mouth once daily Telmisartan 40 mg Tablet Active 40 mg PO DAILY September 03, 2020 12:00am Problems Active Problems Problem Classification Problem Date Documented Da te Episodic/Chronic Abdominal pain (1 source) Right lower quadrant pain; Translations: [Right lower quadrant pain] 11-02-2024 Episodic Hyperplasia of prostate (1 source) Large prostate ; Translations: [Benign prostatic hyperplasia without lower urinary tract symptoms] 11-02-2024 Chronic Pneumonia (except that caused by tuberculosis or sexually transmitted disease) (1 source) Community acquired pneumonia; Translations: [Pneumonia, unspecified organism] 04-15-2019 Episodic Septicemia (except in labor) (1 source) Sepsis; Translations: [Sepsis, unspecified organism] 04-15-2019 Episodic Past or Other Problems Problem Classification Problem Date Documented Da te Episodic/Chronic Unclassified (1 source) No previous significant medical history 10-12-2021 Results Test Name Value Interpretation Reference Range Facility Absolute lymphocyte countOrd ered By: ED PROVIDER on 11-01-2024 Lymphocytes Auto (Unsp spec) [#/Vol] 1.49 10*3/uL 0.83-4.51 [facility] Absolute neutrophil countOrd ered By: ED PROVIDER on 11-01-2024 Neutrophils (Bld) [#/Vol] 5.0 10*3/uL 2.0-7.7 [facility] Anion gap in Serum or Plasma Ordered By: Kenyatta Avalos on 11-01-2024 Anion gap [Moles/Vol] 12 mmol/L 5-15 [facility] Automated lymphocyte count a s percentage of total leukocytesOrdered By: ED PROVIDER on 11-01-2024 Lymphocytes/100 WBC Auto (Unsp spec) 20.2 % 19-41 [facility] BUN/creatinine ratioOrdered By: Kenyatta Avalos on 11-01-2024 Urea nitrogen/Creatinine [Mass ratio] 21.3 mg/mg High 10-20 [facility] Basophil percentageOrdered B y: ED PROVIDER on 11-01-2024 Basophils/100 WBC (Bld) 0.9 % 0-1 [facility] Bilirubin Test strip Ql (U)O rdered By: Kenyatta Avalos on 11-01-2024 Bilirubin Ql (U) Negative Negative [facility] Bilirubin, totalOrdered By: Kenyatta Avalos on 11-01-2024 Bilirubin [Mass/Vol] 0.62 mg/dL 0.00-1.30 [facility] Carbon dioxide, total [Moles /volume] in Central venous bloodOrdered By: Kenyatta Avalos on 11-01-2024 CO2 [Moles/Vol] 25.8 mmol/L 21.0-32.0 [facility] Chloride assayOrdered By: David Avalos on 11-01-2024 Chloride [Moles/Vol] 98 mmol/L 98-108 [facility] Eosinophil percentageOrdered By: ED PROVIDER on 11-01-2024 Eosinophils/100 WBC (Bld) 3.0 % 0-5 [facility] Erythrocyte distribution wid th ratioOrdered By: ED PROVIDER on 11-01-2024 Erythrocyte distribution width (RBC) [Ratio] 12.4 % 11.6-14.6 [facility] Erythrocyte distribution wid th standard deviationOrdered By: ED PROVIDER on 11-01-2024 Erythrocyte distribution width (RBC) [Ratio] 39.8 fl 35.1-43.9 [facility] Glomerular filtration rate ( GFR) estimation/1.73 sq m using serum, plasma, or whole bOrdered By: Kenyatta Avalos on 11-01-2024 GFR/1.73 sq M.predicted among non-blacks MDRD (S/P/Bld) [Vol rate/Area] 87 mL/min/{1.73_m2} >60 [facility] Comment on above: mL/min/1.73m2 CKD-EP I Creatinine Equation (2020) Hematocrit Auto (Bld) [Volum e fraction]Ordered By: ED PROVIDER on 11-01-2024 Hematocrit (Bld) [Volume fraction] 38.0 % Low 40-54 [facility] Hemoglobin measurementOrdere d By: ED PROVIDER on 11-01-2024 Hemoglobin (Bld) [Mass/Vol] 12.9 g/dL Low 13.0-16.5 [facility] Immature granulocytes/100 WB C Auto (Bld)Ordered By: ED PROVIDER on 11-01-2024 Immature granulocytes/100 WBC (Bld) 0.400 % 0.0-0.9 [facility] Comment on above: IG% - Immature Granu locytes (promyelocytes, myelocytes and metamyelocytes) > 1% indicates that a LEFT SHIFT is Present. Ketones Test strip Ql (U)Ord ered By: Kenyatta Avalos on 11-01-2024 Ketones Ql (U) Negative Negative [facility] Laboratory - Chemistry and C hemistry - challengeOrdered By: Kenyatta Avalos on 11-01-2024 AST [Catalytic activity/Vol] 19 U/L <38 [facility] Lipase measurementOrdered By : Kenyatta Avalos on 11-01-2024 Lipase [Catalytic activity/Vol] 110 U/L High 13-75 [facility] Comment on above: Please note:LIPASE r evised reference range effective 22. New Lipase methodology. Expected to produce lower values than the previous assay method. NEW Reference Range: 13 - 75 U/L MCV (mean corpuscular volume ) determinationOrdered By: ED PROVIDER on 11-01-2024 MCV (RBC) [Entitic vol] 87.2 fL 80-94 [facility] Mean corpuscular hemoglobin (MCH) determinationOrdered By: ED PROVIDER on 11-01-2024 MCH (RBC) [Entitic mass] 29.6 pg 27.0-32.0 [facility] Mean corpuscular hemoglobin concentration (MCHC) determinationOrdered By: ED PROVIDER on 11-01-2024 MCHC (RBC) [Mass/Vol] 33.9 g/dL 32-36 [facility] Mean platelet volume determi nationOrdered By: ED PROVIDER on 11-01-2024 Platelet mean volume (Bld) [Entitic vol] 8.5 fL 6.2-12.0 [facility] Microscopic analysis of urin e for red blood cells (RBC)Ordered By: Kneyatta Avalos on 11-01-2024 Microscopic analysis of urine for red blood cells (RBC) 0 SEEN /hpf 0-5 [facility] Monocyte percentageOrdered B y: ED PROVIDER on 11-01-2024 Monocytes/100 WBC (Bld) 8.4 % 0-10 [facility] Mucus LM Ql (Urine sed)Order ed By: Kenyatta Avalos on 11-01-2024 Mucus Ql (Urine sed) 0 SEEN /hpf [facility] Neutrophil percentageOrdered By: ED PROVIDER on 11-01-2024 Neutrophils/100 WBC (Bld) 67.1 % 47-70 [facility] Nitrite Test strip Ql (U)Ord ered By: Kenyatta Avalos on 11-01-2024 Nitrite Ql (U) Negative Negative [facility] Nucleated red blood cell per centageOrdered By: ED PROVIDER on 11-01-2024 Nucleated RBC/100 WBC (Bld) [Ratio] 0 % 0-5 [facility] Platelet countOrdered By: ED PROVIDER on 11-01-2024 Platelets (Bld) [#/Vol] 232 10*3/uL 150-450 [facility] Potassium measurement (mass/ volume)Ordered By: Kenyatta Avalos on 11-01-2024 Potassium (Unsp spec) [Mass/Vol] 4.0 mmol/L 3.3-5.1 [facility] Protein Test strip Ql (U)Ord ered By: Kenyatta Avalos on 11-01-2024 Protein Ql (U) 30 mg/dl High Negative [facility] RBC Auto (Bld) [#/Vol]Ordere d By: ED PROVIDER on 11-01-2024 RBC (Bld) [#/Vol] 4.36 10*6/uL Low 4.6-6.2 [facility] Serum creatinine measurement (mass/volume)Ordered By: Kenyatta Avalos on 11-01-2024 Creatinine [Mass/Vol] 0.89 mg/dL 0.70-1.20 [facility] Serum globulin measurementOr dered By: Kenyatta Avalos on 11-01-2024 Globulin (S) [Mass/Vol] 3.7 g/dL 2.2-4.2 [facility] Serum glucose measurement (m ass/volume)Ordered By: Kenyatta Avalos on 11-01-2024 Glucose [Mass/Vol] 97 mg/dL 70-99 [facility] Serum or plasma alanine gray otransferase (ALT) measurementOrdered By: Kenyatta Avalos on 11-01-2024 ALT [Catalytic activity/Vol] 15 U/L <47 [facility] Serum or plasma albumin jovana urement (mass/volume)Ordered By: Kenyatta Avalos on 11-01-2024 Albumin [Mass/Vol] 3.9 g/dL 3.4-4.8 [facility] Serum or plasma albumin/glob ulin mass ratioOrdered By: Kenyatta Avalos on 11-01-2024 Albumin/Globulin [Mass ratio] 1.1 {ratio} 0.9-2.4 [facility] Serum or plasma alkaline charles sphatase measurementOrdered By: Kenyatta Avalos on 11-01-2024 ALP [Catalytic activity/Vol] 90 U/L 40-129 [facility] Serum or plasma calcium jovana urement (mass/volume)Ordered By: Kenyatta Avalos on 11-01-2024 Calcium [Mass/Vol] 9.4 mg/dL 7.6-11.0 [facility] Serum or plasma urea nitroge n measurement (mass/volume)Ordered By: Kenyatta Avalos on 11-01-2024 Urea nitrogen [Mass/Vol] 19 mg/dL 4-19 [facility] Sodium levelOrdered By: Brett Avalos on 11-01-2024 Sodium [Moles/Vol] 135 mmol/L 133-145 [facility] Squamous epithelial cells de tection in urine sediment by light microscopyOrdered By: Kenyatta Avalos on 11-01-2024 Epithelial cells.squamous LM Ql (Urine sed) 0-5 SEEN /hpf 0-5 [facility] Total proteinOrdered By: Gladys Avalos on 11-01-2024 Protein [Mass/Vol] 7.6 g/dL 5.9-8.4 [facility] Urine clarityOrdered By: Gladys Avalos on 11-01-2024 Clarity (U) Clear Clear [facility] Urine color determinationOrd ered By: Kenyatta Avalos on 11-01-2024 Color (U) Straw Yellow [facility] Urine glucose detectionOrder ed By: Kenyatta Avalos on 11-01-2024 Glucose Ql (U) Normal mg/dl Normal [facility] Urine leukocyte esterase det ection by dipstickOrdered By: Kenyatta Avalos on 11-01-2024 Leukocyte esterase Test strip Ql (U) Negative Negative [facility] Urine pHOrdered By: Kenyatta pena on 11-01-2024 pH (U) 6.5 [pH] 5.0 - 8.0 [facility] Urine sediment bacteria coun t by microscopy (number/high power field)Ordered By: Kenyatta Avalos on 11-01-2024 Bacteria LM.HPF (Urine sed) [#/Area] RARE /hpf None Seen [facility] Urine specific gravity measu rementOrdered By: Kenyatta Avalos on 11-01-2024 Specific gravity (U) [Rel density] 1.010 1.002-1.030 [facility] Urine urobilinogen measureme ntOrdered By: Kenyatta Avalos on 11-01-2024 Urobilinogen Ql (U) Normal mg/dl Normal [facility] White blood cell (WBC) count Ordered By: ED PROVIDER on 11-01-2024 WBC (Bld) [#/Vol] 7.4 10*3/uL 4.4-11.0 [facility] White blood cell countOrdere d By: Kenyatta Avalos on 11-01-2024 White blood cell count 0-5 SEEN /hpf 0-5 [facility] Spine Cervical without Contr ason 09-07-2020 Spine Cervical without Contras [facility] Imaging Services [address] [place] [address] Spine Cervical without Contras MR#: [id number] Acct: [id number] Name: ERNESTINA FOSTER Rep #: [id number] : 1945 M 75 From: Iván ray MD PCP: Dr. Michael Hyman DO Status: REG CLI Study: Spine Cervical without Contras Date of Exam: 0 09/07/20 Exam# [id number] Ordering Dr: Leonel Diego DO STUDY: CT [...] Leonel Diego DO; Dr. Michael Hyman DO Value Stream Manager: Signed Normal [facility] 12 Lead EKGon 09-03-2020 12 Lead EKG [facility] Cardiovascular Services [address] [place] [address] 12 Lead EKG 09/03/20 1207 MR#: [id number] Acct: [id number] Name: ERNESTINA FOSTER Rep #: [id number] : 1945 75 From: Corey Lopez MD Attending Dr: Status: DEP ER Ordering [...] Normal ECG Confirmed by ANIKA HARRIS, COREY ([id number]), online content editor ALEXANDER MORALES ([id number]) on 09/04/2020 1:00:03 PM Referred By: CHIQUIS Confirmed By:COREY LOPEZ MD 09/04/20 1300 Date Corey Lopez MD CC: Dr. Papi Ramon MD; Dr. Michael Hyman DO Signed Normal [facility] Basic Metabolic Profile (BMP )on 09-03-2020 BUN/CRE 27.1 RATIO High 10-20 [facility] Comment on above: Performed By: #### L 500.2500, L100.0100 #### [facility] [address] [place], [address] CA,Total 9.0 mg/dL Normal 8.5-10.1 [facility] Comment on above: Performed By: #### L 500.2500, L100.0100 #### [facility] [address] [place], [address] Chloride [Moles/Vol] 106 mmol/L Normal 98-107 [facility] Comment on above: Performed By: #### L 500.2500, L100.0100 #### [facility] [address] [place], [address] CO2 [Moles/Vol] 26.0 mmol/L Normal 21.0-32.0 [facility] Comment on above: Performed By: #### L 500.2500, L100.0100 #### [facility] [address] [place], [address] Creatinine [Mass/Vol] 0.88 mg/dL Normal 0.70-1.30 [facility] Comment on above: Result Comment: The validity of the calculated GFR GFRAA in patients over 70 years has not been determined. Clinical correlation is essential. Performed By: #### L 500.2500, L100.0100 #### [facility] [address] [place], [address] ECRCL 69.09 ml/min Normal [facility] Comment on above: Performed By: #### L 500.2500, L100.0100 #### [facility] [address] [place], [address] EST GFR - AA 108 mL/min Normal >60 [facility] Comment on above: Result Comment: Afri can [place] GFR Calc Performed By: #### L 500.2500, L100.0100 #### [facility] [address] [place], [address] GAP 6 Normal 5-15 [facility] Comment on above: Performed By: #### L 500.2500, L100.0100 #### [facility] [address] [place], [address] GFR/1.73 sq M.predicted among non-blacks MDRD (S/P/Bld) [Vol rate/Area] 89 mL/min/{1.73_m2} Normal >60 [facility] Comment on above: Result Comment: Non- GFR Calc Performed By: #### L 500.2500, L100.0100 #### [facility] [address] [place], [address] Glucose [Mass/Vol] 88 mg/dL Normal 74-106 [facility] Comment on above: Result Comment: Dimas rodrigues note revised GLUCOSE reference range effective 2017. Performed By: #### L 500.2500, L100.0100 #### [facility] [address] [place], [address] Potassium [Moles/Vol] 4.0 mmol/L Normal 3.5-5.1 [facility] Comment on above: Performed By: #### L 500.2500, L100.0100 #### [facility] [address] [place], [address] Sodium [Moles/Vol] 138 mmol/L Normal 136-145 [facility] Comment on above: Performed By: #### L 500.2500, L100.0100 #### [facility] [address] [place], [address] Urea nitrogen [Mass/Vol] 24 mg/dL High 7-18 [facility] Comment on above: Performed By: #### L 500.2500, L100.0100 #### [facility] [address] [place], [address] CBC W/Diff, Automatedon 08-12 Absolute Lymph 1.91 X10 3/uL Normal 0.83-4.51 [facility] Comment on above: Performed By: #### L 500.2500, L100.0100 #### [facility] [address] [place], [address] Absolute Neut 2.6 X10 3/uL Normal 2.0-7.7 [facility] Comment on above: Performed By: #### L 500.2500, L100.0100 #### [facility] [address] [place], [address] Basophils/100 WBC (Bld) 0.6 % Normal 0-1 [facility] Comment on above: Performed By: #### L 500.2500, L100.0100 #### [facility] [address] [place], [address] Eosinophils/100 WBC (Bld) 3.6 % Normal 0-5 [facility] Comment on above: Performed By: #### L 500.2500, L100.0100 #### [facility] [address] [place], [address] Erythrocyte distribution width (RBC) [Ratio] 12.5 % Normal 11.6-14.6 [facility] Comment on above: Performed By: #### L 500.2500, L100.0100 #### [facility] [address] [place], [address] Hematocrit (Bld) [Volume fraction] 40.0 % Normal 40-54 [facility] Comment on above: Performed By: #### L 500.2500, L100.0100 #### [facility] [address] [place], [address] Hemoglobin (Bld) [Mass/Vol] 13.6 g/dL Normal 13.0-16.5 [facility] Comment on above: Performed By: #### L 500.2500, L100.0100 #### [facility] [address] [place], [address] IG% 0.200 Normal 0.0-0.9 [facility] Comment on above: Result Comment: IG% - Immature Granulocytes (promyelocytes, myelocytes and metamyelocytes) > 1% indicates that a LEFT SHIFT is Present. Performed By: #### L 500.2500, L100.0100 #### [facility] [address] [place], [address] Lymphocytes/100 WBC (Bld) 37.7 % Normal 19-41 [facility] Comment on above: Performed By: #### L 500.2500, L100.0100 #### [facility] [address] [place], [address] MCH (RBC) [Entitic mass] 29.6 pg Normal 27.0-32.0 [facility] Comment on above: Performed By: #### L 500.2500, L100.0100 #### [facility] [address] [place], [address] MCHC (RBC) [Mass/Vol] 34.0 g/dL Normal 32-36 [facility] Comment on above: Performed By: #### L 500.2500, L100.0100 #### [facility] [address] [place], [address] MCV (RBC) [Entitic vol] 87.1 fL Normal 80-94 [facility] Comment on above: Performed By: #### L 500.2500, L100.0100 #### [facility] [address] [place], [address] Monocytes/100 WBC (Bld) 7.5 % Normal 0-10 [facility] Comment on above: Performed By: #### L 500.2500, L100.0100 #### [facility] [address] [place], [address] Neutrophils/100 WBC (Bld) 50.4 % Normal 47-70 [facility] Comment on above: Performed By: #### L 500.2500, L100.0100 #### [facility] [address] [place], [address] Nucleated RBC (Bld) [#/Vol] 0 10*3/uL Normal 0-5 [facility] Comment on above: Performed By: #### L 500.2500, L100.0100 #### [facility] [address] [place], [address] Platelet mean volume (Bld) [Entitic vol] 8.2 fL Normal 6.2-12.0 [facility] Comment on above: Performed By: #### L 500.2500, L100.0100 #### [facility] [address] [place], [address] Platelets (Bld) [#/Vol] 157 10*3/uL Normal 150-450 [facility] Comment on above: Performed By: #### L 500.2500, L100.0100 #### [facility] [address] [place], [address] RBC (Bld) [#/Vol] 4.59 10*6/uL Low 4.6-6.2 [facility] Comment on above: Performed By: #### L 500.2500, L100.0100 #### [facility] [address] [place], [address] RDW SD 39.8 fl Normal 35.1-43.9 [facility] Comment on above: Performed By: #### L 500.2500, L100.0100 #### [facility] [address] [place], [address] WBC (Bld) [#/Vol] 5.1 10*3/uL Normal 4.4-11.0 [facility] Comment on above: Performed By: #### L 500.2500, L100.0100 #### [facility] [address] [place], [address] Emergency Department Summary on 09-03-[address] [facility] Medical Records Department [address] [place] [address] Emergency Department Summary 09/03/20 MR#: [id number] Acct: [id number] Name: ERNESTINA FOSTER Rep #: [id number] : 1945 75 From: Papi Ramon MD PCP: Dr. Michael Hyman, DO Status:REG ER Location: ED HPI History of Present Illness Chief Complaint: Hypertension Informant: patient Onset/Context/Axel sumner Onset: Today Narrative Narrative: The patient is [...] pressure was still elevated despite medical treatment. [facility] Medical History Hypertension No previous significant medical [...] depression Endocrine Endocrinology: Denies polydipsia or polyuria Allergic/Immunologi c Allergic/Immunologi c ED: Denies urticaria EXAM Physical Exam Const [...] MPV 8 (more content not included)... Normal [facility] Vital Signs Date Time Vital Sign Value Performing Clinician Jessenia cosme 11-02-2024 01:53-0400 Body temperature 97.8 [degF] Dr. Kenyatta Avalos DO Work Phone: [facility] 11-02-2024 01:53-0400 Diastolic blood pressure 93 mm[Hg] Dr. Kenyatta Avalos DO Work Phone: [facility] 11-02-2024 01:53-0400 Heart rate 94 /min Dr. Kenyatta Avalos DO Work Phone: [facility] 11-02-2024 01:53-0400 Respiratory rate 16 /min Dr. Kenyatta Avalos DO Work Phone: [facility] 11-02-2024 01:53-0400 SaO2% (BldA) [Mass fraction] 94 % Dr. Kenyatta Avalos DO Work Phone: [facility] 11-02-2024 01:53-0400 Systolic blood pressure 165 mm[Hg] Dr. Kenyatta Avalos DO Work Phone: [facility] 11-01-2024 21:23-0400 Body height 172.[address] Kenyatta Avalos DO Work Phone: [facility] 11-01-2024 21:23-0400 Body mass index (BMI) [Ratio] 26.1 kg/m2 Dr. Kenyatta Avalos DO Work Phone: [facility] 11-01-2024 21:23-0400 Body weight 77.[address] Kenyatta Avalos DO Work Phone: [facility] Encounters Encounter Date Encounter Type Care Provider Facility Start: 11-01-2024 End: 11-02-2024 Emergency department patient visit Dr. Kenyatta Avalos DO Work Phone: -Emergency Department Work Phone: Procedures Date Procedure Procedure Detail Performing Clinician Start: 11-01-2024 Urnls dip stick/tabl et reagent auto microscopy Dr. Kenyatta Avalos DO Work Phone: Start: 11-01-2024 Computed tomography of abdomen and pelvis with intravenous contrast Dr. Kenyatta Avalos DO Work Phone: Start: 11-01-[address] Kenyatta Avalos DO Work Phone: Plan of Treatment Date Care Activity Detail Author Start: 11-02-2024 [facility] Patient Education ED Abdominal P ain Unkn Cause Male... [facility] Work Phone: Payers Date Payer Category Payer Policy ID Unknown [id number] Social History Date Type Detail Facility Start: 11-01-2024 Tobacco smoking stat [facility] Never smoked tobacco (finding) [facility] Start: 04-15-2019 Alcohol Alcohol [facility] Start: 04-15-2019 Lives Lives [facility] Start: 04-15-2019 Tobacco Use Tobacco Use [facility] Start: 1945 Sex Assigned At Male [facility] Radiology Diagnostic study note 11-02-2024 Note Date & Type Note Facility 11-02-2024 Radiology Diagnostic study note [facility] Imaging Services [address] [place] [address] Abdomen/Pelvis W IV Cont ONLY MR#: [id number] Acct: [id number] Name: ERNESTINA FOSTER Rep #: [id number] : 1945 M 79 From: Kali Jasso MD PCP: Ryan Hurst PA-C Status: REG ER Study:Abdomen/Pelvis W IV Cont ONLY Date of E xam: 11/01/24 Exam# [id number] Ordering Dr: Robbie Avalos DO PROCEDURE: ABDOMEN/PELVIS W IV CONT ONLY 11/01/2024 REASON FOR EXAM: RLQ ABD PAIN TECHNIQUE: ABDOMEN/PELVIS W IV CONT ONLY Coronal and Sagittal reconstruction series were provided. CONTRAST: Isovue-300 50 VOLUME: 100 mL One or more dose reduction techniques were used (e.g., Automated exposure control, adjustment of the mA and/or kV according to patient size, use of iterative reconstruction technique. RADIATION DOSE SUMMARY: CTDlvol: 14.02 MGy DLP: 749 mGycm COMPARISON: CT scan on 04/15/2019. FINDINGS: Fluid-filled colon, possibly secondary to diarrhea/enteritis. Mild prostatomegaly. Diffuse thickening of the bladder. Chronic bladder outlet obstruction versus mild cystitis. Small sliding hiatal hernia. Diffuse thickening of the stomach suggestive of gastritis. The visualized lung bases are unremarkable. Normal liver. Normal gallbladder and extrahepatic biliary system. Normal spleen. Normal pancreas. Normal bilateral adrenal glands. Normal size of the right kidney. There is no right renal mass. There are no right renal calculi. There is no right hydronephrosis. Normal visualized right ureter. Normal size of the left kidney. There is no left renal mass. There are no leftrenal calculi. There is no left hydronephrosis. Normal visualized left ureter. Normal small intestine. The appendix is visualized and appears normal. There is no demonstrated peritoneal fluid. Normal inferior vena cava. Normal retroperitoneum. There is no pelvic mass lesion or lymphadenopathy. There is no pelvic fluid. Bilateral fat containing inguinal hernias without incarceration. Diffuse spondylosis. CT/Abdomen/Pelvis W IV Cont ONLY IMPRESSION: Fluid-filled colon, possibly secondary to diarrhea/enteritis. Mild prostatomegaly. Diffuse thickening of the bladder. Chronic bladder outlet obstruction versus mild cystitis. Small sliding hiatal hernia. Diffuse thickening of the stomach suggestive of gastritis. Normal appendix. Reading [facility] CC: MELISSA Hurst; Dr. Kenyatta Avalos, DO ~ Value Stream Manager: Signed [facility] Evaluation note Note Date & Type Note Facility Evaluation note No assessment information availa ble [facility] Work Phone: Hospital Discharge instructions Note Date & Type Note Facility Hospital Discharge instructions Additional Instructions Your lab work was largely normal today. Your CT showed some inflammation of your stomach as well as your colon which could be consistent with gastroenteritis or stomach bug/virus. You might develop some diarrhea over the next 24 hours. If you have black or blood in your stool, worse abdominal pain, fever or further concerns please return to the emergency room. You have been given referral for GI specialist to follow-up with. Make sure you are drinking plenty of fluids. Your CT did show enlargement of prostate, please follow-up with your family doctor for this. [facility] Work Phone: Reason for referral (narrative) Note Date & Type Note Facility Reason for referral (narrative) No reason for referral information available [facility] Work Phone: Summary Purpose Family History Relationship Condition Age at Onset Recorded Date/T maksim Unknown Family History?- Unknown April 9:23pm Family History?Heart Disease Unknown April 15, 2019 9:23pm Advance Directives Advance Directive Response Recorded Date/ Time Do you have a Healthcare Power of Chief Operator Lock Tender? No [place] 22nd, 2025 10:31pm Chief Complaint and Reason for Visit Chief Complaint Admit Date abd pain November 01, 2024 9: 22pm Additional Source Comments (unrecognized sect ion and content) No Status Records Found INFORMATION SOURCE (unrecogn ized section and content) DATE CREATED AUTHOR 09/09/2020 [facility] Care Teams (unrecognized sec tion and content) Team Status: Active Member Role/Relationship Status Dates Dr. Ryan Hurst PA-C Primary Care Provider Active Team Status: Inactive Member Role/Relationship Status Dates Dr. Kenyatta Avalos , Emergency Provider Active Start: November 01, 2024 End: November 02, 2024 Dr. Ryan Hurst PA-C Primary Care Provider Active Start: November 01, 2024 End: November 02, 2024 Goals (unrecognized section and content) Goals may be documented in a n alternate section FOR RECORDS PERTAINING TO PATIENTS WHO ARE [...] BE BASED ON THE PRIMARY CLINICAL RECORDS. [employer] provides no warranty or guarantee of the accuracy or completeness of information in this document.
--- NOTE | 2024-11-03 20:23 | EKG12_ITS ---
Test Reason : DYSRHYTHMIA Blood Pressure : */* mmHG Vent. Rate : 94 BPM Atrial Rate : * BPM P-R Int : * ms QRS Dur : 76 ms QT Int : 342 ms P-R-T Axes : * -7 -11 degrees QTcB Int : 427 ms Atrial fibrillation with premature ventricular or aberrantly conducted complexes Abnormal ECG Confirmed by ANIKA HARRIS, SHAUN ([id number]), avid editor GABRIELA COOLEY ([id number]) on 11/04/2024 1:09:22 PM Referred By: JOCELIN Confirmed By: SHAUN DONALDSON MD
== END 2024-11-03 23:30 | disposition home or self-care (01) ==
PROVIDERS: Emergency Provider Emergency Medicine; PCP Physician Assistant; Visit Provider Emergency Medicine
DX: G51.0 Bell's palsy (principal); I48.91 Unspecified atrial fibrillation; I10 Essential (primary) hypertension; E78.00 Pure hypercholesterolemia, unspecified; I49.3 Ventricular premature depolarization; Z79.82 Long term (current) use of aspirin; Z79.899 Other long term (current) drug therapy
CPT/HCPCS: 70450; 80048; 85025; 93005; 99285; A4216

== ENCOUNTER → 2024-11-25 | Outpatient (CLI) | payer SELFPAY ==
[2024-11-25 13:10] LABS: Hematocrit 37.8 % (40-54); Hemoglobin 12.8 g/dL (13.0-16.5); Immature Granulocytes Count 0.060 X10^3/uL (0.0-0.0); Mean Corp Hgb Conc 33.9 g/dL (32-36); Mean Corpuscular Volume 86.9 fL (80-94); Mean Platelet Vol. 8.5 fl (6.2-12.0); NRBC Flagged by Analyzer 0 % (0-5); Platelet Count 176 K/mm3 (150-450); RBC Distribution Width CV 12.7 % (11.6-14.6); RBC Distribution Width SD 39.9 fl (35.1-43.9); Red Blood Count 4.35 M/mm3 (4.6-6.2); White Blood Count 6.5 K/mm3 (4.4-11.0)
[2024-11-25 14:15] LABS: Anion Gap 11 (5-15); BUN 19 mg/dL (4-19); BUN/Creat Ratio 20.5 RATIO (10-20); Calcium,Total 9.4 mg/dL (7.6-11.0); Carbon Dioxide 23.6 mmol/L (21.0-32.0); Chloride 104 mmol/L (98-108); Glucose 88 mg/dL (70-99); Lipase 29 U/L (13-75); Potassium 4.2 mmol/L (3.3-5.1)
== END | disposition home or self-care (01) ==
LOC: LAB 11:56
PROVIDERS: PCP Physician Assistant; Referring Provider Nurse Practitioner Acute Care; Visit Provider Nurse Practitioner Acute Care
DX: D64.9 Anemia, unspecified (principal); R74.8 Abnormal levels of other serum enzymes
CPT/HCPCS: 36415; 80048; 83690; 85025

== ENCOUNTER → 2024-12-26 | Outpatient (CLI) | payer OTHER, SELFPAY ==
[2024-12-26 09:05] LABS: Cholesterol 199 mg/dL (<=200); Low Density Lipoprotein Calc. 131 mg/dL; Magnesium 2.2 mg/dL (1.5-2.2); Triglycerides 156 mg/dL; Very Low Density Lipoprotein 31 mg/dL (5-40); cholesterol:hdl ratio screen 5.35
== END | disposition home or self-care (01) ==
PROVIDERS: PCP Physician Assistant; Referring Provider Internal Medicine Cardiovascular Disease; Visit Provider Internal Medicine Cardiovascular Disease
DX: I10 Essential (primary) hypertension (principal); I48.0 Paroxysmal atrial fibrillation; I49.3 Ventricular premature depolarization; Z86.73 Personal history of transient ischemic attack (TIA), and cerebral infarction without residual deficits
CPT/HCPCS: 36415; 80061; 83735; 84443